=== PATIENT | male | born 1940 | race African-American/Black ===

== ENCOUNTER 2017-04-25 11:26 | Observation (INO) | payer MEDICARE ==
[~2017-04-25] VITALS: Ht 172.7 cm; Wt 70.0 kg
[2017-04-25] VITALS (8 sets, daily range): BP systolic 121–180; BP diastolic 57–79; PULSE 72–91; RESP 15–20; TEMP 97.7–98.2; O2SAT 98–99
[~2017-04-25 11:26] MED LIST: ALLO100T PO; ASPI325T PO; CLOP75 PO; COZA100T PO; CYCL-36 PO; DORZO2%O EACH EYE; HYDR-2768 PO; IBUP-232 PO; ISOS60TA PO; LIPI80TA16 PO; NIFE10CA PO; NITR0.4S SL; RANO500 PO; VITA400D PO; XALA0.00 EACH EYE
[2017-04-25] MEDS ORDERED: LOSA100T PO ×2 (11:49→11:55)
[2017-04-25] MEDS ORDERED: ASPI-516 CHEW (11:49)
[2017-04-25] MEDS ORDERED: ASPI81TA23 PO (11:49)
--- NOTE | 2017-04-25 11:53 | PD ---
HPI Chief Complaint: Pain: Acute or Chronic Time Seen by Provider: 11:35 Travel History International Travel<30 days: No Contact w/Intl Traveler<30days: No Traveled to known affect area: No History of Present Illness HPI 76-year-old male presents to the emergency department for evaluation of right- sided neck and right shoulder pain that has been ongoing for 1 week. He states it is worse with movement. He states he saw his primary care physician who gave him prescription for tramadol and Flexeril. He is out of his tramadol. Patient also states he has lost 10 pounds in the past month. He states his primary care physician was quite happy with this, but he is not sure why he lost weight and would like some workup to be done for this. Patient reports some chills. He denies any chest pain or shortness of breath at this time. No abdominal pain. Nausea, vomiting, diarrhea. Severity is mild. Exacerbating factor is movement. Alleviating factor is rest. PFSH Past Medical History Arthritis: Yes (GOUT) Asthma: No Atrial Fibrillation: Yes Blood Disorders: No Heart Rhythm Problems: Yes Cancer: No Cardiac Catheterization: Yes Cardiovascular Problems: Yes (heart attack, pvd) High Cholesterol: Yes Chemotherapy: No Chest Pain: Yes (cardiac cath 08/2013) Congestive Heart Failure: Yes COPD: No Coronary Artery Disease: Yes Diabetes: Yes (TYPE 2) Patient Takes Glucophage: Yes Diminished Hearing: No Endocrine: No Gastrointestinal Disorders: No GERD: Yes Glaucoma: Yes Genitourinary: Yes Hepatitis: No Hiatal Hernia: No Hypertension: Yes Immune Disorder: No Kidney Stones: No Musculoskeletal: Yes (arthritis) Neurologic: No Psychiatric: No Reproductive: No Respiratory: Yes Integumentary: No Immunizations Current: No Myocardial Infarction: Yes Radiation Therapy: No Renal Failure: Yes Sleep Apnea: No Thyroid Disease: No Ulcer: No Tetanus Vaccination: > 5 Years Influenza Vaccination: Yes Past Surgical History Abdominal Surgery: No AICD: No Arteriovenous Shunt: No Body Medical Devices: cardiac stents Cardiac Surgery: Yes (CABG IN OCTOBER 2004) Coronary Artery Bypass Graft: Yes (5 VESSEL IN 2004) Ear Surgery: No Endocrine Surgery: No Eye Surgery: Yes (RIGHT EYE LASER GLAUCOMA) Genitourinary Surgery: No Gynecologic Surgery: No Insulin Pump: No Joint Replacement: No Oral Surgery: No Pacemaker: No Thoracic Surgery: No Other Surgery: Yes (MANAGER FRENCH X 2 TOO LEFT LEG IN FEB 2006) Family History Family Hypercholesterolemia: Yes Social History Alcohol Use: No Tobacco Use: No (FORMER) Substance Use: No Allergies-Medications (Allergen,Severity, Reaction): Coded Allergies: oyster extract (Unverified Allergy, Severe, 04/25/17) Reported Meds & Prescriptions Reported Meds & Active Scripts Active Reported Nitrostat SL (Nitroglycerin) 0.4 Mg Subl 0.4 Mg SL DIRECTED PRN 1 tablet under the tongue as needed for chest pain. Repeat every 5 minutes for a total of 3 DOSES or call 911 if NO relief. Virtussin A-C Liq (Guaifenesin-Codeine Liq) 100-10 Mg/5 Ml Soln 5 Ml PO Q4H PRN Tramadol (Tramadol HCl) 50 Mg Tab 50 Mg PO Q8H PRN Nifedipine ER 24 HR (Nifedipine) 60 Mg Tab 60 Mg PO DAILY Plavix (Clopidogrel Bisulfate) 75 Mg Tab 75 Mg PO DAILY Isosorbide Mononitrate ER (Isosorbide Mononitrate) 120 Mg Rei 120 Mg PO DAILY Flexeril (Cyclobenzaprine HCl) 10 Mg Tab 10 Mg PO TID Allopurinol 100 Mg Tab 100 Mg PO DAILY Atorvastatin (Atorvastatin Calcium) 80 Mg Tab 80 Mg PO HS Vitamin D-3 (Cholecalciferol) 1,000 Unit Cap Hydrochlorothiazide 25 Mg Tab 25 Mg PO DAILY Aspirin EC (Aspirin) 81 Mg Tabdr 81 Mg PO DAILY Losartan (Losartan Potassium) 100 Mg Tab 100 Mg PO DAILY Review of Systems Except as stated in HPI: all other systems reviewed are Neg Physical Exam Narrative GENERAL: Well-nourished, well-developed male patient, afebrile. SKIN: Focused skin assessment warm/dry. HEAD: Normocephalic. Atraumatic. EYES: No scleral icterus. No injection or drainage. NECK: Supple, trachea midline. No JVD or lymphadenopathy. CARDIOVASCULAR: Regular rate and rhythm without murmurs, gallops, or rubs. Right radial pulses 2+ RESPIRATORY: Breath sounds equal bilaterally. No accessory muscle use. Lungs sounds are clear to auscultation. GASTROINTESTINAL: Abdomen soft, non-tender, nondistended. MUSCULOSKELETAL: No cyanosis, or edema. Patient is tenderness of her right trapezius muscle and right shoulder. This pain is reproduced with lateral rotation of the neck as well as flexion of the shoulder. BACK: Nontender without obvious deformity. No CVA tenderness. Data Data Last Documented VS Vital Signs Date Time Temp Pulse Resp B/P (MAP) Pulse Ox O2 Delivery O2 Flow Rate FiO2 04/25/17 12:00 20 99 Room Air 04/25/17 11:45 77 04/25/17 11:41 97.7 Orders Orders Complete Blood Count With Diff (04/25/17 11:48) Comprehensive Metabolic Panel (04/25/17 11:48) Magnesium (Mg) (04/25/17 11:48) Urinalysis - C+S If Indicated (04/25/17 11:48) Ecg Monitoring (04/25/17 11:48) Iv Access Insert/Monitor (04/25/17 11:48) Oximetry (04/25/17 11:48) Sodium Chloride 0.9% Flush (Ns Flush) (04/25/17 12:00) Thyroid Stimulating Hormone (04/25/17 11:48) Tramadol (Ultram) (04/25/17 12:00) Shoulder, Complete (>2vws) (04/25/17 ) Sodium Chlor 0.9% 1000 Ml Inj (Ns 1000 M (04/25/17 13:15) Admit Order (Ed Use Only) (04/25/17 13:59) Labs Laboratory Tests Test 04/25/17 11:57 04/25/17 12:20 White Blood Count 7.8 TH/MM3 Red Blood Count 2.91 MIL/MM3 Hemoglobin 8.9 GM/DL Hematocrit 26.8 % Mean Corpuscular Volume 92.0 FL Mean Corpuscular Hemoglobin 30.7 PG Mean Corpuscular Hemoglobin Concent 33.4 % Red Cell Distribution Width 14.0 % Platelet Count 225 TH/MM3 Mean Platelet Volume 8.0 FL Neutrophils (%) (Auto) 56.7 % Lymphocytes (%) (Auto) 27.3 % Monocytes (%) (Auto) 14.7 % Eosinophils (%) (Auto) 1.0 % Basophils (%) (Auto) 0.3 % Neutrophils # (Auto) 4.4 TH/MM3 Lymphocytes # (Auto) 2.1 TH/MM3 Monocytes # (Auto) 1.1 TH/MM3 Eosinophils # (Auto) 0.1 TH/MM3 Basophils # (Auto) 0.0 TH/MM3 CBC Comment DIFF FINAL Differential Comment Blood Urea Nitrogen 65 MG/DL Creatinine 4.66 MG/DL Random Glucose 113 MG/DL Total Protein 7.1 GM/DL Albumin 3.1 GM/DL Calcium Level 8.7 MG/DL Magnesium Level 1.8 MG/DL Alkaline Phosphatase 91 U/L Aspartate Amino Transf (AST/SGOT) 9 U/L Alanine Aminotransferase (ALT/SGPT) 14 U/L Total Bilirubin 0.5 MG/DL Sodium Level 135 MEQ/L Potassium Level 4.0 MEQ/L Chloride Level 103 MEQ/L Carbon Dioxide Level 25.0 MEQ/L Anion Gap 7 MEQ/L Estimat Glomerular Filtration Rate 15 ML/MIN Thyroid Stimulating Hormone 3rd Gen 0.092 uIU/ML Urine Color YELLOW Urine Turbidity CLEAR Urine pH 5.5 Urine Specific [place] 1.012 Urine Protein 100 mg/dL Urine Glucose (UA) NEG mg/dL Urine Ketones NEG mg/dL Urine Occult Blood NEG Urine Nitrite NEG Urine Bilirubin NEG Urine Urobilinogen LESS THAN 2.0 MG/DL Urine Leukocyte Esterase NEG Urine RBC LESS THAN 1 /hpf Urine WBC LESS THAN 1 /hpf Urine Squamous Epithelial Cells <1 /hpf Microscopic Urinalysis Comment CULT NOT INDICATED MDM Medical Decision Making Medical Screen Exam Complete: Yes Emergency Medical Condition: Yes Medical Record Reviewed: Yes Interpretation(s) Last Impressions Shoulder X-Ray 04/25/17 0000 Signed Impressions: Service Date/Time: , April 25, 2017 12:04 - CONCLUSION: 1. No evidence of fracture or dislocation. 2. As severity right a.c. joint arthropathy. Familia Camacho MD Differential Diagnosis Muscle strain versus muscle spasm versus electrolyte abnormality Narrative Course 76-year-old male presents to the emergency department for evaluation of right shoulder neck pain is been ongoing for 1 week. His primary care physician is Jean-Pierre is muscle spasms. He is out of his current tramadol. The pain is easily reproducible with movement and palpation. Patient also states he lost 10 pounds in one month. He states his primary care physician is happy with this, but he is worried. CBC, CMP, magnesium, TSH, UA are ordered and pending. X- ray of the right shoulder is ordered and pending. Patient is given tramadol 50 by mouth. CBC shows anemia with hemoglobin 8.9, hematocrit 26.8. CMP shows elevated BUN of 65, creatinine 4.66. Magnesium is 1.8. TSH is 0.092. UA is negative for acute infection. X-ray of the right shoulder shows no acute fracture or dislocation. I performed a rectal exam which she, ED finance associate at bedside. Stool is brown, no masses, Hemoccult negative. Patient is given normal saline 1 L IV bolus. [facility] is paged for observation admission for dehydration, acute kidney injury. Dr. Narvaez accepted admission. Diagnosis Primary Impression: Acute kidney injury Additional Impression: Generalized weakness Admitting Information Admitting Physician Requests: Observation Lary Goetz Apr 25, 2017 11:53
[2017-04-25] MEDS ORDERED: GUAI1SOL7 PO (11:55)
[2017-04-25] MEDS ORDERED: ALLO100T PO (11:55)
[2017-04-25] MEDS ORDERED: NIFE60TA58 PO (11:55)
[2017-04-25] MEDS ORDERED: D31000CA3 (11:55)
[2017-04-25] MEDS ORDERED: CYCL10TA PO (11:55)
[2017-04-25] MEDS ORDERED: ATOR80TA45 PO (11:55)
[2017-04-25] MEDS ORDERED: HYDR25TA5 PO (11:55)
[2017-04-25] MEDS ORDERED: NITR0.4S SL (11:55)
[2017-04-25] MEDS ORDERED: TRAM50TA PO (11:55)
[2017-04-25] MEDS ORDERED: ISOS120T PO (11:55)
[2017-04-25] MEDS ORDERED: PLAV75TA29 PO (11:55)
[2017-04-25] MEDS ORDERED: traMADol HCL 50 MG TAB PO ONE (12:00)
[2017-04-25] MEDS ORDERED: SODIUM CHLORIDE 0.9% FLUSH 10 ML FLUSH IVF PRN (12:00)
--- NOTE | 2017-04-25 12:25 | RADRPT ---
EXAM DATE/TIME: 04/25/2017 12:04 [facility] COMPARISON: No previous studies available for comparison. INDICATIONS : Right shoulder pain for 1 week. No known injury. MEDICAL HISTORY : Hypertension. Myocardial infarction. Diabetes mellitus type II. Afib. Coronary artery disease. SURGICAL HISTORY : CABG. Cardiac cath. ENCOUNTER: Initial ACUITY: 1 week PAIN SCORE: 6/10 LOCATION: Right shoulder. FINDINGS: Multiple view examination of the right shoulder demonstrates no evidence of fracture or dislocation. The glenohumeral and acromioclavicular joints are maintained, with moderate severity degenerative ch anges in the a.c. joint. There is normal range of motion between internal and external rotation. Th e visualized frontoparietal intact. Bony mineralization is normal. CONCLUSION: 1. No evidence of fracture or dislocation. 2. As severity right a.c. joint arthropathy. Familia Camacho MD on April 25, 2017 at 12:22 Board Certified Radiologist. This report was verified electronically.
--- NOTE | 2017-04-25 12:34 | PD ---
Physical Exam Date Seen by Provider: Apr 25, 2017 Time Seen by Provider: 11:45 Narrative This patient presented with a one-week history of right neck and shoulder pain. Data Data Last Documented VS Vital Signs Date Time Temp Pulse Resp B/P (MAP) Pulse Ox O2 Delivery O2 Flow Rate FiO2 04/25/17 12:00 20 99 Room Air 04/25/17 11:45 77 04/25/17 11:41 97.7 Orders Orders Complete Blood Count With Diff (04/25/17 11:48) Comprehensive Metabolic Panel (04/25/17 11:48) Magnesium (Mg) (04/25/17 11:48) Urinalysis - C+S If Indicated (04/25/17 11:48) Ecg Monitoring (04/25/17 11:48) Iv Access Insert/Monitor (04/25/17 11:48) Oximetry (04/25/17 11:48) Sodium Chloride 0.9% Flush (Ns Flush) (04/25/17 12:00) Thyroid Stimulating Hormone (04/25/17 11:48) Tramadol (Ultram) (04/25/17 12:00) Shoulder, Complete (>2vws) (04/25/17 ) Labs Laboratory Tests Test 04/25/17 11:57 04/25/17 12:20 MDM Supervised Visit with TERRY: Yes Narrative Course I, Dr. Littlejohn, have reviewed the advance practice practitioner's documentation and am in agreement, met with the patient face to face, made the diagnosis, and the medical decision making was done by me. *My assessment and Findings: This patient presents with a one-week history of right neck and shoulder pain. He looks well. Please see Lary Goetz NP's note for laboratory and radiology results, final diagnosis and disposition Nerissa Littlejohn MD Apr 25, 2017 12:34
[2017-04-25 12:37] LABS: AUTOMATED NEUTROPHIL # 4.4 TH/MM3 (1.8-7.7); BASOPHIL % 0.3 % (0.0-2.0); EOSINOPHIL # 0.1 TH/MM3 (0-0.4); HEMATOCRIT 26.8 % (39.0-51.0); HEMO FLAGS DIFF FINAL; LYMPH % 27.3 % (9.0-44.0); LYMPHOCYTE # 2.1 TH/MM3 (1.0-4.8); MEAN CORPUSCULAR HEMOGLOBIN 30.7 PG (27.0-34.0); MEAN CORPUSCULAR HGB CONC 33.4 % (32.0-36.0); MONO % 14.7 % (0.0-8.0); NEUT % 56.7 % (16.0-70.0); PLATELET COUNT 225 TH/MM3 (150-450); RED BLOOD COUNT 2.91 MIL/MM3 (4.50-5.90); WHITE BLOOD COUNT 7.8 TH/MM3 (4.0-11.0)
[2017-04-25 12:40] LABS: BLOOD, URINE NEG (NEG); GLUCOSE,URINE NEG (NEG); KETONE, URINE NEG (NEG); NITRITE,URINE NEG (NEG); PH, URINE 5.5 (5.0-8.5); SQUAMOUS EPITHELIAL CELL URINE <1 /hpf (0-5); URINE COLOR YELLOW (YELLW/STRAW)
[2017-04-25 12:44] LABS: COMMENT (UR) CULT NOT INDICATED; CULTURE IF INDICATED CULT NOT INDICATED
[2017-04-25 12:52] LABS: ANION GAP 7 MEQ/L (5-15); AST (GOT) 9 U/L (15-37); BLOOD UREA NITROGEN 65 MG/DL (7-18); CHLORIDE 103 MEQ/L (98-107); GLOMERULAR FILTRATION RATE 15 ML/MIN (>89); MAGNESIUM 1.8 MG/DL (1.5-2.5); SODIUM (NA) 135 MEQ/L (136-145)
[2017-04-25 12:53] LABS: ALT (GPT) 14 U/L (12-78)
[2017-04-25 13:02] LABS: ALKALINE PHOSPHATASE 91 U/L (45-117); TOTAL BILIRUBIN ADULT 0.5 MG/DL (0.2-1.0)
[2017-04-25] MEDS ORDERED: SODIUM CHLOR 0.9% 1000 ML INJ 1,000 ML IV ONE (13:15)
[2017-04-25] MEDS ORDERED: ONDANSETRON HCL 4 MG/2 ML VIAL IVP PRN (14:15)
[2017-04-25] MEDS ORDERED: MAGNESIUM HYDROXIDE SUSP 30 ML CUP PO PRN (14:15)
[2017-04-25] MEDS ORDERED: NALOXONE HCL 0.4 MG/ML AMP IV PUSH PRN (14:15)
[2017-04-25] MEDS ORDERED: SODIUM CHLORIDE 0.9% FLUSH 10 ML FLUSH IV FLUSH PRN (14:15)
[2017-04-25] MEDS ORDERED: ACETAMINOPHEN 325 MG TAB PO PRN (14:15)
--- NOTE | 2017-04-25 14:21 | HHI.HP ---
HPI Service [facility] Hospitalists Primary Care Physician Duke Rankin MD, PhD Admission Diagnosis ILA, generalized weakness Chief Complaint: pain posterior neck and shoulder x 5 days Travel History International Travel<30 Days: No Contact w/Intl Traveler <30 Da: No Traveled to Known Affected Are: No History of Present Illness This is a 76 year old male patient with a past medical history which includes: CAD, [place] s/p cardiac stents and CAGG x 5, PAD, HTN, CKD stage IV - V followed by Dr. Landrum has left arm fistula placed 2015. Patient presents to the ER with concern regarding pain in the posterior neck with radiation to right posterior shoulder. Pain is described as a muscle spasm. Patient worse with turning the head. Supraspinatus and paraspinous muscles feel tight/ bulging on palpation. Patient report the pain started about five nights ago and awoke him from sleep. Patient does not recall any unusual activity or injury to the area. Patient was seen by his PCP Dr. Rankin Saturday for this same pain and was treated with Flexeril 10 mg TID and Tramadol 50 mg as needed for pain. The Flexeril and tramadol initially helped to relieve the pain, but the pain returned last night so patient proceeded to the ER. Patient endorses nonproductive cough earlier in the week that seems to have resolved. Patient denies chest pain, shortness of breath, N/V/D/C, fevers or chills. Review of Systems Constitutional: DENIES: Fatigue, Fever, Chills Eyes: DENIES: Blurred vision, Diplopia, Vision loss Respiratory: COMPLAINS OF: Cough, DENIES: Sputum production, Shortness of breath Cardiovascular: DENIES: Chest pain, Palpitations, Lower Extremity Edema Gastrointestinal: DENIES: Abdominal pain, Constipation, Diarrhea Neurologic: DENIES: Abnormal gait, Headache, Localized weakness, Speech Problems Psychiatric: DENIES: Anxiety, Confusion, Depression Past Family Social History Past Medical History CAD with cardiac stents and CABG x 5, PAD, HTN, CKD stage IV - V not yet on HD Past Surgical History CABG x5 2007 cardiac stents LUE fistula stage IV placed 2015 colonoscopy Reported Medications Nitrostat SL (Nitroglycerin) 0.4 Mg Subl 0.4 Mg SL DIRECTED PRN 1 tablet under the tongue as needed for chest pain. Repeat every 5 minutes for a total of 3 DOSES or call 911 if NO relief. Virtussin A-C Liq (Guaifenesin-Codeine Liq) 100-10 Mg/5 Ml Soln 5 Ml PO Q4H PRN Tramadol (Tramadol HCl) 50 Mg Tab 50 Mg PO Q8H PRN Nifedipine ER 24 HR (Nifedipine) 60 Mg Tab 60 Mg PO DAILY Plavix (Clopidogrel Bisulfate) 75 Mg Tab 75 Mg PO DAILY Isosorbide Mononitrate ER (Isosorbide Mononitrate) 120 Mg Rei 120 Mg PO DAILY Flexeril (Cyclobenzaprine HCl) 10 Mg Tab 10 Mg PO TID Allopurinol 100 Mg Tab 100 Mg PO DAILY Atorvastatin (Atorvastatin Calcium) 80 Mg Tab 80 Mg PO HS Vitamin D-3 (Cholecalciferol) 1,000 Unit Cap Hydrochlorothiazide 25 Mg Tab 25 Mg PO DAILY Aspirin EC (Aspirin) 81 Mg Tabdr 81 Mg PO DAILY Losartan (Losartan Potassium) 100 Mg Tab 100 Mg PO DAILY Allergies: Coded Allergies: oyster extract (Unverified Allergy, Severe, 04/25/17) Active Ordered Medications Current Medications Medications (Trade) Dose Ordered Sig/[place] Route Start Time Stop Time Status Last Admin (NS Flush) 2 ml UNSCH PRN IV FLUSH 04/25/17 14:15 (NS Flush) 2 ml BID IV FLUSH 04/25/17 21:00 (Tylenol) 650 mg Q4H PRN PO 04/25/17 14:15 (Zofran Inj) 4 mg Q6H PRN IVP 04/25/17 14:15 (Narcan Inj) 0.4 mg UNSCH PRN IV PUSH 04/25/17 14:15 (Jihan-Colace) 1 tab BID PO 04/25/17 21:00 (Milk Of Magnesia Liq) 30 ml Q12H PRN PO 04/25/17 14:15 (Zyloprim) 100 mg DAILY PO 04/26/17 09:00 UNV (Ecotrin Ec) 81 mg DAILY PO 04/26/17 09:00 UNV (Lipitor) 80 mg HS PO 04/25/17 21:00 UNV (Plavix) 75 mg DAILY PO 04/26/17 09:00 UNV (Flexeril) 10 mg TID PO 04/25/17 18:00 UNV (Robitussin Ac 200-20 Mg/10 ml Liq) 5 ml Q4H PRN PO 04/25/17 15:30 UNV (Imdur) 120 mg DAILY PO 04/26/17 09:00 UNV (Procardia Xl) 60 mg DAILY PO 04/26/17 09:00 UNV (Ultram) 50 mg Q8H PRN PO 04/25/17 15:30 UNV Family History Reviewed and noncontributory Social History Denies ETOH use Quit smoking 15 years ago, prior to that has a 25 pack year history Physical Exam Vital Signs Vital Signs Date Time Temp Pulse Resp B/P (MAP) Pulse Ox O2 Delivery O2 Flow Rate FiO2 04/25/17 12:00 20 99 Room Air 04/25/17 11:45 77 20 04/25/17 11:41 97.7 79 18 121/57 (78) 04/25/17 11:28 97.8 81 18 142/65 (90) 99 Room Air Physical Exam GENERAL: This is a well-nourished, well-developed patient, in no apparent distress. SKIN: No rashes, ecchymoses or lesions. Cool and dry. HEAD: Atraumatic. Normocephalic. No temporal or scalp tenderness. EYES: Extraocular motions intact. No scleral icterus. No injection or drainage. ENT: Nose without bleeding, purulent drainage or septal hematoma. Throat without erythema, tonsillar hypertrophy or exudate. Uvula midline. Airway patent. NECK: Trachea midline. No JVD or lymphadenopathy. Supple, nontender, no meningeal signs. CARDIOVASCULAR: Regular rate and rhythm RESPIRATORY: Clear to auscultation. Breath sounds equal bilaterally. GASTROINTESTINAL: Abdomen soft, non-tender, nondistended. No hepato-splenomegaly , or palpable masses. No guarding. MUSCULOSKELETAL: Extremities without clubbing, cyanosis, or edema. No joint tenderness, effusion, or edema noted. No calf tenderness. Negative Homans sign bilaterally. Supraspinatus and paraspinous muscles feel tight/bulging on palpation NEUROLOGICAL: Awake and alert. No focal deficits. Motor and sensory grossly within normal limits. Five out of 5 muscle strength in all muscle groups. Normal speech. Laboratory Laboratory Tests Test 04/25/17 11:57 04/25/17 12:20 White Blood Count 7.8 Red Blood Count 2.91 Hemoglobin 8.9 Hematocrit 26.8 Mean Corpuscular Volume 92.0 Mean Corpuscular Hemoglobin 30.7 Mean Corpuscular Hemoglobin Concent 33.4 Red Cell Distribution Width 14.0 Platelet Count 225 Mean Platelet Volume 8.0 Neutrophils (%) (Auto) 56.7 Lymphocytes (%) (Auto) 27.3 Monocytes (%) (Auto) 14.7 Eosinophils (%) (Auto) 1.0 Basophils (%) (Auto) 0.3 Neutrophils # (Auto) 4.4 Lymphocytes # (Auto) 2.1 Monocytes # (Auto) 1.1 Eosinophils # (Auto) 0.1 Basophils # (Auto) 0.0 CBC Comment DIFF FINAL Differential Comment Blood Urea Nitrogen 65 Creatinine 4.66 Random Glucose 113 Total Protein 7.1 Albumin 3.1 Calcium Level 8.7 Magnesium Level 1.8 Alkaline Phosphatase 91 Aspartate Amino Transf (AST/SGOT) 9 Alanine Aminotransferase (ALT/SGPT) 14 Total Bilirubin 0.5 Sodium Level 135 Potassium Level 4.0 Chloride Level 103 Carbon Dioxide Level 25.0 Anion Gap 7 Estimat Glomerular Filtration Rate 15 Thyroid Stimulating Hormone 3rd Gen 0.092 Urine Color YELLOW Urine Turbidity CLEAR Urine pH 5.5 Urine Specific [place] 1.012 Urine Protein 100 Urine Glucose (UA) NEG Urine Ketones NEG Urine Occult Blood NEG Urine Nitrite NEG Urine Bilirubin NEG Urine Urobilinogen LESS THAN 2.0 Urine Leukocyte Esterase NEG Urine RBC LESS THAN 1 Urine WBC LESS THAN 1 Urine Squamous Epithelial Cells <1 Microscopic Urinalysis Comment CULT NOT INDICATED Result Diagram: 04/25/17 1157 04/25/17 1157 Imaging Last Impressions Shoulder X-Ray 04/25/17 0000 Signed Impressions: Service Date/Time: April 12:04 - CONCLUSION: 1. No evidence of fracture or dislocation. 2. As severity right a.c. joint arthropathy. MD Narda Diaz VTE Risk Assessment Caprini VTE Risk Assessment: Mod/High Risk (score >= 2) Caprini Risk Assessment Model Point Value = 1 Point Value = 2 Point Value = 3 Point Value = 5 Age 41-60 Minor surgery BMI > 25 kg/m2 Swollen legs Varicose veins or History of unexplained or recurrent spontaneous Oral contraceptives or hormone replacement Sepsis (< 1 month) Serious lung disease, including pneumonia (< 1 month) Abnormal pulmonary function Acute myocardial infarction Congestive heart failure (< 1 month) History of inflammatory bowel disease Medical patient at bed rest Age 61-74 Arthroscopic surgery Major open surgery (> 45 min) Laparoscopic surgery (> 45 min) Malignancy Confined to bed (> 72 hours) Immobilizing plaster cast Central venous access Age >= 75 History of VTE Family history of VTE Factor V Leiden Prothrombin [id number] Lupus anticoagulant Anticardiolipin antibodies Elevated serum homocysteine Heparin-induced thrombocytopenia Other congenital or acquired thrombophilia Stroke (< 1 month) Elective arthroplasty Hip, pelvis, or leg fracture Acute spinal cord injury (< 1 month) Prophylaxis Regimen Total Risk Factor Score Risk Level Prophylaxis Regimen 0-1 Low Early ambulation 2 Moderate Order ONE of the following: *Sequential Compression Device (SCD) *Heparin 5000 units SQ BID 3-4 Higher Order ONE of the following medications: *Heparin 5000 units SQ TID *Enoxaparin/Lovenox 40 mg SQ daily (WT < 150 kg, CrCl > 30 mL/min) *Enoxaparin/Lovenox 30 mg SQ daily (WT < 150 kg, CrCl > 10-29 mL/min) *Enoxaparin/Lovenox 30 mg SQ BID (WT < 150 kg, CrCl > 30 mL/min) AND/OR *Sequential Compression Device (SCD) 5 or more Highest Order ONE of the following medications: *Heparin 5000 units SQ TID (Preferred with Epidurals) *Enoxaparin/Lovenox 40 mg SQ daily (WT < 150 kg, CrCl > 30 mL/min) *Enoxaparin/Lovenox 30 mg SQ daily (WT < 150 kg, CrCl > 10-29 mL/min) *Enoxaparin/Lovenox 30 mg SQ BID (WT < 150 kg, CrCl > 30 mL/min) AND *Sequential Compression Device (SCD) Assessment and Plan Problem List: (1) Muscle spasms of neck ICD Codes: M62.838 - Other muscle spasm Plan: This is a 76 year old male patient with a past medical history which includes: CAD, [place] s/p cardiac stents and CAGG x 5, PAD, HTN, CKD stage IV - V followed by Dr. Landrum has left arm fistula placed 2016. Patient presents to the ER with concern regarding pain in the posterior neck with radiation to right posterior shoulder. Pain is described as a muscle spasm. Patient worse with turning the head. Supraspinatus and paraspinous muscles feel tight/bulging on palpation. Patient report the pain started about five nights ago and awoke him from sleep. Patient does not recall any unusual activity or injury to the area. Patient was seen by his PCP Dr. Rankin Saturday for this same pain and was treated with Flexeril 10 mg TID and Tramadol 50 mg as needed for pain. The Flexeril and tramadol initially helped to relieve the pain, but the pain returned last night so patient proceeded to the ER. Patient endorses nonproductive cough earlier in the week that seems to have resolved. Muscle spasm of the neck Continue with Flexeril 10 mg TID Tramadol 50 mg PO as needed Solu Medrol 125 mg x 1 now then 60 mg Q6H Right shoulder X ray reviewed and reviewed No evidence of fracture or dislocation. right AC joint arthropathy CKD patient has CKD stage IV-V follows with David Landrum baseline GFR 15-17 Patient has also LUE AV fistula that was placed 2015, but is not yet on HD gentle IV hydration recheck BMP in AM Cough CXR ordered and pending CAD continue home medications Patient denies chest pain DVT prophylaxis with SCDs (2) CKD (chronic kidney disease) ICD Codes: N18.9 - CKD (chronic kidney disease) Status: Acute (3) Cough ICD Codes: R05 - Cough Status: Acute Malu Maldonado Apr 25, 2017 14:21
[2017-04-25] MEDS ORDERED: methylPREDNISolone SOD SUCC 125 MG/2 ML VIAL IV PUSH ONE (15:30)
[2017-04-25] MEDS ORDERED: guaiFENesin/CODEINE SYRUP 200 MG/20 MG/10 ML CUP PO PRN (15:30)
[2017-04-25] MEDS: CYCLOBENZAPRINE HCL 10 MG TAB PO SCH (18:04)
[2017-04-25] MEDS: DOCUSATE SODIUM 50 MG/SENNA 8.6 MG TAB PO SCH (20:38)
[2017-04-25] MEDS: traMADol HCL 50 MG TAB PO PRN (20:38)
--- NOTE | 2017-04-25 20:38 | RADRPT ---
EXAM DATE/TIME: 04/25/2017 18:01 [facility] COMPARISON: CHEST SINGLE AP, November 02, 2014, 4:50. INDICATIONS : Cough x 4days MEDICAL HISTORY : Hypertension. Myocardial infarction. Diabetes mellitus type II. Afib. SURGICAL HISTORY : CABG. Cardiac cath. ENCOUNTER: Subsequent ACUITY: 2 days PAIN SCORE: 0/10 LOCATION: Bilateral chest FINDINGS: A single view of the chest demonstrates postop CABG. Mild basilar atelectasis. Tortuous aorta. No pne umothorax. CONCLUSION: 1. Mild basilar atelectasis. Postop CABG. Ar Lee MD on April 25, 2017 at 20:35 Board Certified Radiologist. This report was verified electronically.
[2017-04-25] MEDS: methylPREDNISolone SOD SUCC 125 MG/2 ML VIAL IV PUSH SCH (20:39)
[2017-04-25] MEDS: SODIUM CHLORIDE 0.9% FLUSH 10 ML FLUSH IV FLUSH SCH (20:39)
[2017-04-25] MEDS ORDERED: ATORVASTATIN 80 MG TAB PO SCH (21:00)
[2017-04-25] MEDS: NITROGLYCERIN 0.4 MG SL 25 TABS/BTL SL PRN (22:29)
[2017-04-25] MEDS ORDERED: amLODIPine BESYLATE 5 MG TAB PO SCH (22:30)
[2017-04-26] VITALS (10 sets, daily range): BP systolic 140–200; BP diastolic 69–100; PULSE 86–103; RESP 17–20; TEMP 97.5–97.8; O2SAT 97–100
[2017-04-26] MEDS: NITROGLYCERIN 0.4 MG SL 25 TABS/BTL SL PRN ×5 (03:37→15:50)
[2017-04-26] MEDS: methylPREDNISolone SOD SUCC 125 MG/2 ML VIAL IV PUSH SCH (03:48)
[2017-04-26] MEDS: traMADol HCL 50 MG TAB PO PRN (07:17)
[2017-04-26 07:27] LABS: AUTOMATED NEUTROPHIL # 4.7 TH/MM3 (1.8-7.7); BASOPHIL % 0.2 % (0.0-2.0); HEMATOCRIT 30.2 % (39.0-51.0); HEMO FLAGS DIFF FINAL; LYMPH % 12.2 % (9.0-44.0); LYMPHOCYTE # 0.7 TH/MM3 (1.0-4.8); MEAN CELL VOLUME 91.6 FL (80.0-100.0); MEAN CORPUSCULAR HEMOGLOBIN 31.1 PG (27.0-34.0); MONO % 0.8 % (0.0-8.0); NEUT % 86.8 % (16.0-70.0); PLATELET COUNT 214 TH/MM3 (150-450); RED CELL DISTRIBUTION WIDTH 14.1 % (11.6-17.2); WHITE BLOOD COUNT 5.4 TH/MM3 (4.0-11.0)
[2017-04-26 07:50] LABS: BICARBONATE 24.3 MEQ/L (21.0-32.0); POTASSIUM 4.3 MEQ/L (3.5-5.1)
[2017-04-26] MEDS ORDERED: PANTOPRAZOLE SODIUM 40 MG VIAL IV PUSH ONE (08:00)
[2017-04-26] MEDS ORDERED: ALUMINUM/MAGNESIUM/SIMETH 30 ML CUP PO ONE (08:00)
[2017-04-26] MEDS ORDERED: PROT40TA PO ×2 (08:04→10:24)
--- NOTE | 2017-04-26 08:05 | HHI.DCPOC ---
Discharge Care Plan Diagnosis: (1) Muscle spasms of neck Goals to Promote Your Health * To prevent worsening of your condition and complications * To maintain your health at the optimal level Directions to Meet Your Goals Take your medications as prescribed Follow your dietary instruction Follow activity as directed Keep your appointments as scheduled Take your immunizations and boosters as scheduled If your symptoms worsen call your PCP, if no PCP go to Urgent Care Center or Emergency Room Smoking is Dangerous to Your Health. Avoid second hand smoke Call the 24-hour hour crisis hotline for domestic abuse at Mal[place] Maldonado Apr 26, 2017 08:05
--- NOTE | 2017-04-26 08:13 | HHI.PR ---
Subjective Remarks Patient reports neck and posterior shoulder pain resolved now c/o stomach ache which started this AM. Patient describes moderate intensity, "feels like somebody punched me in the stomach." Patient denies burning sensation. Patient also denies N/V. Last BM 2 days ago. Objective Vitals Vital Signs Date Time Temp Pulse Resp B/P (MAP) Pulse Ox O2 Delivery O2 Flow Rate FiO2 04/26/17 03:55 94 140/69 (92) 04/26/17 03:30 103 17 160/100 (120) 97 04/25/17 23:29 98.0 90 18 180/79 (112) 98 04/25/17 19:10 98.2 91 16 177/76 (109) 98 04/25/17 18:05 166/72 (103) 04/25/17 15:21 98.2 72 20 169/72 (104) 99 04/25/17 14:55 04/25/17 14:48 72 15 158/74 (102) 99 Room Air 04/25/17 12:00 20 99 Room Air 04/25/17 11:45 77 20 04/25/17 11:41 97.7 79 18 121/57 (78) 04/25/17 11:28 97.8 81 18 142/65 (90) 99 Room Air Result Diagram: 04/26/17 0708 04/26/17 0708 Other Results Laboratory Tests Test 04/25/17 11:57 04/25/17 12:20 04/26/17 07:08 White Blood Count 7.8 TH/MM3 5.4 TH/MM3 Red Blood Count 2.91 MIL/MM3 3.30 MIL/MM3 Hemoglobin 8.9 GM/DL 10.3 GM/DL Hematocrit 26.8 % 30.2 % Mean Corpuscular Volume 92.0 FL 91.6 FL Mean Corpuscular Hemoglobin 30.7 PG 31.1 PG Mean Corpuscular Hemoglobin Concent 33.4 % 34.0 % Red Cell Distribution Width 14.0 % 14.1 % Platelet Count 225 TH/MM3 214 TH/MM3 Mean Platelet Volume 8.0 FL 8.2 FL Neutrophils (%) (Auto) 56.7 % 86.8 % Lymphocytes (%) (Auto) 27.3 % 12.2 % Monocytes (%) (Auto) 14.7 % 0.8 % Eosinophils (%) (Auto) 1.0 % 0.0 % Basophils (%) (Auto) 0.3 % 0.2 % Neutrophils # (Auto) 4.4 TH/MM3 4.7 TH/MM3 Lymphocytes # (Auto) 2.1 TH/MM3 0.7 TH/MM3 Monocytes # (Auto) 1.1 TH/MM3 0.0 TH/MM3 Eosinophils # (Auto) 0.1 TH/MM3 0.0 TH/MM3 Basophils # (Auto) 0.0 TH/MM3 0.0 TH/MM3 CBC Comment DIFF FINAL DIFF FINAL Differential Comment Blood Urea Nitrogen 65 MG/DL 66 MG/DL Creatinine 4.66 MG/DL 4.15 MG/DL Random Glucose 113 MG/DL 174 MG/DL Total Protein 7.1 GM/DL Albumin 3.1 GM/DL Calcium Level 8.7 MG/DL 8.9 MG/DL Magnesium Level 1.8 MG/DL Alkaline Phosphatase 91 U/L Aspartate Amino Transf (AST/SGOT) 9 U/L Alanine Aminotransferase (ALT/SGPT) 14 U/L Total Bilirubin 0.5 MG/DL Sodium Level 135 MEQ/L 137 MEQ/L Potassium Level 4.0 MEQ/L 4.3 MEQ/L Chloride Level 103 MEQ/L 106 MEQ/L Carbon Dioxide Level 25.0 MEQ/L 24.3 MEQ/L Anion Gap 7 MEQ/L 7 MEQ/L Estimat Glomerular Filtration Rate 15 ML/MIN 17 ML/MIN Total Creatine Kinase 44 U/L Thyroid Stimulating Hormone 3rd Gen 0.092 uIU/ML Urine Color YELLOW Urine Turbidity CLEAR Urine pH 5.5 Urine Specific [place] 1.012 Urine Protein 100 mg/dL Urine Glucose (UA) NEG mg/dL Urine Ketones NEG mg/dL Urine Occult Blood NEG Urine Nitrite NEG Urine Bilirubin NEG Urine Urobilinogen LESS THAN 2.0 MG/DL Urine Leukocyte Esterase NEG Urine RBC LESS THAN 1 /hpf Urine WBC LESS THAN 1 /hpf Urine Squamous Epithelial Cells <1 /hpf Microscopic Urinalysis Comment CULT NOT INDICATED Imaging Last Impressions Shoulder X-Ray 04/25/17 0000 Signed Impressions: Service Date/Time: April 12:04 - CONCLUSION: 1. No evidence of fracture or dislocation. 2. As severity right a.c. joint arthropathy. Familia Camacho MD Objective Remarks GENERAL: This is a well-nourished, well-developed patient, in no acute distress. CARDIOVASCULAR: Regular rate and rhythm RESPIRATORY: Clear to auscultation. Breath sounds equal bilaterally. No wheezes , rales, or rhonchi. GASTROINTESTINAL: Abdomen soft, non-tender, nondistended. Normal active bowel sounds MUSCULOSKELETAL: Extremities without clubbing, cyanosis, or edema. NEURO: Alert & Oriented x4 to person, place, time, situation. Moves all ext x4 A/P Problem List: (1) Muscle spasms of neck ICD Codes: M62.838 - Other muscle spasm Plan: This is a 76 year old male patient with a past medical history which includes: CAD, IN s/p cardiac stents and CAGG x 5, PAD, HTN, CKD stage IV - V followed by Dr. Landrum has left arm fistula placed 2016. Patient presents to the ER with concern regarding pain in the posterior neck with radiation to right posterior shoulder. Pain is described as a muscle spasm. Patient worse with turning the head. Supraspinatus and paraspinous muscles feel tight/bulging on palpation. Patient report the pain started about five nights ago and awoke him from sleep. Patient does not recall any unusual activity or injury to the area. Patient was seen by his PCP Dr. Rankin Saturday for this same pain and was treated with Flexeril 10 mg TID and Tramadol 50 mg as needed for pain. The Flexeril and tramadol initially helped to relieve the pain, but the pain returned last night so patient proceeded to the ER. Patient endorses nonproductive cough earlier in the week that seems to have resolved. Muscle spasm of the neck- resolved Continue with Flexeril 10 mg TID Tramadol 50 mg PO as needed Solu Medrol 125 mg x 1 now then 60 mg Q6H Right shoulder X ray reviewed and reviewed No evidence of fracture or dislocation. right AC joint arthropathy CKD patient has CKD stage IV-V follows with David Landrum baseline GFR 15-17 Patient has also LUE AV fistula that was placed 2016, but is not yet on HD gentle IV hydration recheck BMP with mild improvement BUN 66, creatinine 4.15, GFR 17 recommend follow up with Dr. Landrum outpatient Cough CXR reviewed and reveals mild basilar atelectasis. post-op CABG IS ordered encouraged deep breathing CAD patient denies chest pain continue home medications Patient denies chest pain Stomach pain Maalox Protonix IV x 1 then PO daily Hyperthyroidism Patient free T4 1.77, TSH 0.092 will need follow up with PCP after DC DVT prophylaxis with SCDs Patient reevaluated at 10:00AM stomach pain has resolved patient now c/o lower abdominal pain and constipation KUB ordered and reviewed reveals stool and gas in bowels. Consistent with a mild adynamic ileus versus early partial small bowel obstruction Patient has a soft nondistended abdomen, with normoactive bowel sounds through out continue to monitor 16:02 patient had large BM no longer having abdominal pain Will DC home follow up with PCP Dr. Rankin in 3-5 days and follow up with his outpatient partner integration planner Dr. Landrum Activity and diet as tolerated- no restrictions continue home medications on DC add protonix 40mg daily prednisone taper Flexeril 10 mg TID x 7 days (2) CKD (chronic kidney disease) ICD Codes: N18.9 - CKD (chronic kidney disease) Status: Acute (3) Cough ICD Codes: R05 - Cough Status: Acute Assessment and Plan Patient examined. Assessment and plan formulated with Malu Maldonado PA-C. I agree with the above. neck spasm is resolved. now lower abdomen pains.could be constipation. kub shows alot of stool/gas and possible ileus vs psbo. pt getting magcitrate now....if bm and resolved pain then d/c and f/u with pcp to monitor this situation. if no bm then consider CT a/p. Malu Maldonado Apr 26, 2017 08:13 Pierre Narvaez MD Apr 26, 2017 11:59
[2017-04-26] MEDS ORDERED: SODIUM CHLOR 0.9% 1000 ML INJ 1,000 ML IV SCH (08:15)
[2017-04-26] MEDS: SODIUM CHLORIDE 0.9% FLUSH 10 ML FLUSH IV FLUSH SCH (08:23)
[2017-04-26] MEDS: DOCUSATE SODIUM 50 MG/SENNA 8.6 MG TAB PO SCH (08:24)
[2017-04-26] MEDS: CYCLOBENZAPRINE HCL 10 MG TAB PO SCH ×2 (08:25→12:28)
[2017-04-26] MEDS ORDERED: cloNIDine HCL 0.1 MG TAB PO ONE (08:30)
[2017-04-26] MEDS ORDERED: NIFEdipine 60 MG SUSTAINED RELEASE TAB PO SCH (09:00)
[2017-04-26] MEDS ORDERED: CLOPIDOGREL 75 MG TAB PO SCH (09:00)
[2017-04-26] MEDS ORDERED: ALLOPURINOL 100 MG TAB PO SCH (09:00)
[2017-04-26] MEDS ORDERED: ASPIRIN EC 81 MG TABEC PO SCH (09:00)
[2017-04-26] MEDS ORDERED: ISOSORBIDE MONONITRATE 60 MG TAB PO SCH (09:00)
[2017-04-26] MEDS ORDERED: MAGNESIUM HYDROXIDE SUSP 30 ML CUP PO ONE (10:00)
[2017-04-26] MEDS ORDERED: MAGNESIUM CITRATE SOLN 300 ML BTL PO ONE (10:00)
[2017-04-26] MEDS ORDERED: CYCL10TA PO (10:24)
[2017-04-26] MEDS ORDERED: PRED10 PO (10:24)
--- NOTE | 2017-04-26 10:30 | RADRPT ---
EXAM DATE/TIME: 04/26/2017 09:59 [facility] COMPARISON: No previous studies available for comparison. INDICATIONS : Abdominal pain and constipation. MEDICAL HISTORY : Hypertension. Myocardial infarction. Diabetes mellitus type II. Afib. SURGICAL HISTORY : Umbilical hernia repair. CABG. Cardiac cath. ENCOUNTER: Subsequent ACUITY: 2 days PAIN SCORE: 5/10 LOCATION: abdomen FINDINGS: Multiple air-filled minimally dilated loops of small bowel in the left abdomen. Air and stool seen th roughout the colon. No gross free air or pneumatosis. Multiple calcifications in the pelvis likely re flect phleboliths. Degenerative spondylosis of the lower lumbar spine. CONCLUSION: 1. Findings consistent with mild adynamic ileus versus early partial small bowel obstruction. Cody Mercer MD on April 26, 2017 at 10:27 Board Certified Radiologist. This report was verified electronically.
[2017-04-26] MEDS ORDERED: GLUCAGON 1 MG/ML VIAL OTHER PRN (11:30)
[2017-04-26] MEDS ORDERED: DEXTROSE 50% IN WATER 50 ML VIAL(D50) IV PUSH PRN (11:30)
[2017-04-26] MEDS ORDERED: INSULIN ASPART SUPPLEMENTAL SCALE SQ SCH (12:00)
[2017-04-26] MEDS ORDERED: DIATRIZOATE MEGLUM/DIATRIZOATE SOD 9 ML CUP PO ONE (16:00)
[2017-04-26] MEDS ORDERED: LOSARTAN 50 MG TAB PO SCH (16:00)
[2017-04-27] MEDS ORDERED: PANTOPRAZOLE SOD 40 MG DELAYED RELEASE TAB PO SCH (09:00)
== END 2017-04-26 17:09 | disposition home or self-care (01) ==
LOC: NEPE 11:26 → NEDA 14:00 → NEPFCDU 15:16
PROVIDERS: ADMIT Hospitalist; ATTEND Hospitalist
DX: M62.838 Other muscle spasm (principal); N17.9 Acute kidney failure, unspecified; E86.0 Dehydration; I12.9 Hypertensive chronic kidney disease with stage 1 through stage 4 chronic kidney disease, or unspecified chronic kidney disease; N18.4 Chronic kidney disease, stage 4 (severe); E11.22 Type 2 diabetes mellitus with diabetic chronic kidney disease; D64.9 Anemia, unspecified; I25.10 Atherosclerotic heart disease of native coronary artery without angina pectoris; E05.90 Thyrotoxicosis, unspecified without thyrotoxic crisis or storm; J98.11 Atelectasis; K21.9 Gastro-esophageal reflux disease without esophagitis; R05 Cough; K59.00 Constipation, unspecified; I25.2 Old myocardial infarction; M10.9 Gout, unspecified; Z95.1 Presence of aortocoronary bypass graft; Z95.5 Presence of coronary angioplasty implant and graft; Z87.891 Personal history of nicotine dependence
CPT/HCPCS: 71010; 73030; 74000; 80048; 80053; 81001; 82550; 83735; 84439; 84443; 85025; 94150; 96361; 96372; 96374; 96375; 96376; 97161; 97530; 99285; C9113; G0378; G8987; G8988; J1815; J2930; J7030

== ENCOUNTER 2017-09-07 06:22 | Inpatient (IN) | payer MEDICARE ==
[~2017-09-07] VITALS: Ht 165.1 cm; Wt 67.3 kg
[~2017-09-07 06:22] MED LIST changes: -ASPI325T PO; +ASPI81TA23 PO; +ATOR80TA45 PO; -CLOP75 PO; -COZA100T PO; -CYCL-36 PO; +CYCL10TA PO; +D31000CA3; -DORZO2%O EACH EYE; +GUAI1SOL7 PO; -HYDR-2768 PO; +HYDR25TA5 PO; -IBUP-232 PO; +ISOS120T PO; -ISOS60TA PO; -LIPI80TA16 PO; +LOSA100T PO; -NIFE10CA PO; +NIFE60TA58 PO; +PLAV75TA29 PO; +PRED10 PO; +PROT40TA PO; -RANO500 PO; -VITA400D PO; -XALA0.00 EACH EYE
[2017-09-07 06:29] VITALS: BP 148/69; PULSE 66; RESP 16; TEMP 98.1; O2SAT 99
--- NOTE | 2017-09-07 07:25 | PD ---
HPI Chief Complaint: Altered Mental Status Time Seen by Provider: 06:56 Travel History International Travel<30 days: No Contact w/Intl Traveler<30days: No Traveled to known affect area: No History of Present Illness HPI 77-year-old man presents emergency department brought by family. He reports that they brought him in because he felt like he was "leaving this world" this morning. Is a lot of trouble characterizing exactly how he fell. It sounds like he had some shortness of breath, and felt generally unwell. No chest pain. Denies any recent illness or injury. He has not had shortness of breath leading up to this. 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 He has a left upper extremity fistula. Family reports that over the past several days he has had less appetite and anorexia and difficulty eating. He states that he is able to take boost and Ensure drinks. Also states his urination has been lessened and felt like last night he could not urinate. History of CAD, diabetes. No fevers. No other recent infection symptoms. Patient appears overtly, I will be at mildly, confused, states that the IV in his arm is fake, and that he "knows what is going on here". Also insists that he feels fine at this time. History Past Medical History Narrative Medical CAD, history of CABG Diabetes Chronic kidney disease, left upper extremity fistula, no history of dialysis Hyperlipidemia Hypertension Social History Alcohol Use: No Tobacco Use: No (FORMER) Allergies-Medications (Allergen,Severity, Reaction): Coded Allergies: oyster extract (Unverified Allergy, Severe, 04/25/17) Reported Meds & Prescriptions Reported Meds & Active Scripts Active Flexeril (Cyclobenzaprine HCl) 10 Mg Tab 10 Mg PO TID 7 Days Prednisone 10 Mg Tab 10 Mg PO DIRECTED take 40 mg for three days, then tale 30 mg for three days, then take 20 mg for three days, then take 10 mg for three days, then stop Protonix (Pantoprazole Sodium) 40 Mg Tab 40 Mg PO DAILY Reported Nitrostat SL (Nitroglycerin) 0.4 Mg Subl 0.4 Mg SL DIRECTED PRN 1 tablet under the tongue as needed for chest pain. Repeat every 5 minutes for a total of 3 DOSES or call 911 if NO relief. Virtussin A-C Liq (Guaifenesin-Codeine Liq) 100-10 Mg/5 Ml Soln 5 Ml PO Q4H PRN Nifedipine ER 24 HR (Nifedipine) 60 Mg Tab 60 Mg PO DAILY Plavix (Clopidogrel Bisulfate) 75 Mg Tab 75 Mg PO DAILY Isosorbide Mononitrate ER (Isosorbide Mononitrate) 120 Mg Rei 120 Mg PO DAILY Allopurinol 100 Mg Tab 100 Mg PO DAILY Atorvastatin (Atorvastatin Calcium) 80 Mg Tab 80 Mg PO HS Vitamin D-3 (Cholecalciferol) 1,000 Unit Cap Hydrochlorothiazide 25 Mg Tab 25 Mg PO DAILY Aspirin EC (Aspirin) 81 Mg Tabdr 81 Mg PO DAILY Losartan (Losartan Potassium) 100 Mg Tab 100 Mg PO DAILY Review of Systems ROS Limitations: Clinical Condition Physical Exam Narrative GENERAL: 77-year-old man, looks well, no acute distress. SKIN: Focused skin assessment warm/dry. Little bit of decreased skin turgor. HEAD: Atraumatic. Normocephalic. EYES: Pupils equal and round. No scleral icterus. No injection or drainage. ENT: No nasal bleeding or discharge. Mucous membranes pink and moist. NECK: Trachea midline. Some JVD. CARDIOVASCULAR: Regular rate and rhythm. Soft systolic murmur. RESPIRATORY: No accessory muscle use. Clear to auscultation. Breath sounds equal bilaterally. GASTROINTESTINAL: Abdomen soft, non-tender, nondistended. Hepatic and splenic margins not palpable. MUSCULOSKELETAL: No obvious deformities. No edema. NEUROLOGICAL: Awake and alert. Some confusion. No obvious cranial nerve deficits. Motor grossly within normal limits. Normal speech. Somewhat mistrustful. Data Data Last Documented VS Vital Signs Date Time Temp Pulse Resp B/P (MAP) Pulse Ox O2 Delivery O2 Flow Rate FiO2 09/07/17 07:26 97 Nasal Cannula 2.00 09/07/17 06:29 98.1 66 16 148/69 (95) Orders Orders Complete Blood Count With Diff (09/07/17 07:14) Comprehensive Metabolic Panel (09/07/17 07:14) Iv Access Insert/Monitor (09/07/17 07:14) Electrocardiogram (09/07/17 ) Urinalysis - C+S If Indicated (09/07/17 07:14) Troponin I (09/07/17 07:14) Chest, Pa & Lat (09/07/17 ) Ecg Monitoring (09/07/17 07:14) Oximetry (09/07/17 07:14) Oxygen Administration (09/07/17 07:14) Admit Order (Ed Use Only) (09/07/17 ) Labs Laboratory Tests Test 09/07/17 07:29 White Blood Count 9.3 TH/MM3 Red Blood Count 2.88 MIL/MM3 Hemoglobin 9.1 GM/DL Hematocrit 26.5 % Mean Corpuscular Volume 92.1 FL Mean Corpuscular Hemoglobin 31.7 PG Mean Corpuscular Hemoglobin Concent 34.4 % Red Cell Distribution Width 14.4 % Platelet Count 216 TH/MM3 Mean Platelet Volume 8.4 FL Neutrophils (%) (Auto) 65.0 % Lymphocytes (%) (Auto) 22.3 % Monocytes (%) (Auto) 11.7 % Eosinophils (%) (Auto) 0.7 % Basophils (%) (Auto) 0.3 % Neutrophils # (Auto) 6.1 TH/MM3 Lymphocytes # (Auto) 2.1 TH/MM3 Monocytes # (Auto) 1.1 TH/MM3 Eosinophils # (Auto) 0.1 TH/MM3 Basophils # (Auto) 0.0 TH/MM3 CBC Comment DIFF FINAL Differential Comment Blood Urea Nitrogen 74 MG/DL Creatinine 6.51 MG/DL Random Glucose 106 MG/DL Total Protein 7.8 GM/DL Albumin 3.6 GM/DL Calcium Level 9.4 MG/DL Alkaline Phosphatase 92 U/L Aspartate Amino Transf (AST/SGOT) 17 U/L Alanine Aminotransferase (ALT/SGPT) 18 U/L Total Bilirubin 0.4 MG/DL Sodium Level 133 MEQ/L Potassium Level 5.1 MEQ/L Chloride Level 99 MEQ/L Carbon Dioxide Level 25.6 MEQ/L Anion Gap 8 MEQ/L Estimat Glomerular Filtration Rate 10 ML/MIN Troponin I 1.40 NG/ML [facility] Medical Decision Making Medical Screen Exam Complete: Yes Emergency Medical Condition: Yes Interpretation(s) My review of EKG: Sinus rhythm at a rate of 67, small inferior Q waves, QRS is a little bit wide at 137, no definite evidence of acute ischemia. Differential Diagnosis Renal failure uremia, infection, CHF or PND, other Narrative Course Medical decision making INITIAL: 77 Youifeanyi presents to the emergency department with initial episode last night where apparently was short of breath and felt like he was dying, this seems to have mostly resolved. In the setting of what appears to be some new mild confusion, and some anorexia. This is worrisome for worsening kidney disease. He overall looks generally well. I do not see any evidence of significant volume overload. Will check x-ray, labs, reassess. FINAL: Patient likely worsening renal failure, troponins elevated. Will plan on admission to the hospital. I spoke with Dr. Narvaez, will admit patient. Diagnosis Primary Impression: Elevated troponin Additional Impressions: NSTEMI (non-ST elevated myocardial infarction) CKD (chronic kidney disease) Admitting Information Admitting Physician Requests: Admit Rolly Cowart MD Sep 07, 2017 07:25
[2017-09-07 07:26] VITALS: O2SAT 97
[2017-09-07 07:37] LABS: AUTOMATED NEUTROPHIL # 6.1 TH/MM3 (1.8-7.7); BASOPHIL % 0.3 % (0.0-2.0); EOSINOPHIL # 0.1 TH/MM3 (0-0.4); EOSINOPHIL % 0.7 % (0.0-4.0); HEMATOCRIT 26.5 % (39.0-51.0); HEMOGLOBIN 9.1 GM/DL (13.0-17.0); LYMPH % 22.3 % (9.0-44.0); LYMPHOCYTE # 2.1 TH/MM3 (1.0-4.8); MEAN CELL VOLUME 92.1 FL (80.0-100.0); MEAN CORPUSCULAR HEMOGLOBIN 31.7 PG (27.0-34.0); MEAN CORPUSCULAR HGB CONC 34.4 % (32.0-36.0); MEAN PLATELET VOLUME 8.4 FL (7.0-11.0); MONO % 11.7 % (0.0-8.0); MONOCYTE # 1.1 TH/MM3 (0-0.9); PLATELET COUNT 216 TH/MM3 (150-450); RED BLOOD COUNT 2.88 MIL/MM3 (4.50-5.90); RED CELL DISTRIBUTION WIDTH 14.4 % (11.6-17.2); WHITE BLOOD COUNT 9.3 TH/MM3 (4.0-11.0)
--- NOTE | 2017-09-07 07:38 | RADRPT ---
EXAM DATE/TIME: 09/07/2017 07:24 [facility] COMPARISON: No previous studies available for comparison. INDICATIONS : Shortness of breath. MEDICAL HISTORY : Hypertension. Myocardial infarction. Diabetes mellitus type II. Afib. SURGICAL HISTORY : CABG. Cardiac cath. ENCOUNTER: Initial ACUITY: 1 day PAIN SCORE: Non-responsive. LOCATION: Bilateral chest FINDINGS: PA and lateral views of the chest demonstrate mild cardiomegaly with post surgical changes related to CABG surgery. The pulmonary vasculature is normal in caliber. The lungs are clear. Osseous structure s demonstrate degenerative change. CONCLUSION: No acute disease. Carola Lilly MD on September 07, 2017 at 7:34 Board Certified Radiologist. This report was verified electronically.
[2017-09-07 08:00] LABS: ALBUMIN 3.6 GM/DL (3.4-5.0); AST (GOT) 17 U/L (15-37); BICARBONATE 25.6 MEQ/L (21.0-32.0); BLOOD UREA NITROGEN 74 MG/DL (7-18); CALCIUM 9.4 MG/DL (8.5-10.1); CHLORIDE 99 MEQ/L (98-107); CREATININE 6.51 MG/DL (0.60-1.30); GLOMERULAR FILTRATION RATE 10 ML/MIN (>89); GLUCOSE,RANDOM 106 MG/DL (74-106); SODIUM (NA) 133 MEQ/L (136-145)
[2017-09-07 08:01] LABS: ALT (GPT) 18 U/L (12-78)
[2017-09-07 08:05] LABS: ALKALINE PHOSPHATASE 92 U/L (45-117); TOTAL BILIRUBIN ADULT 0.4 MG/DL (0.2-1.0); TOTAL PROTEIN 7.8 GM/DL (6.4-8.2)
[2017-09-07 11:39] VITALS: BP 166/72; PULSE 66; RESP 18; O2SAT 97
[2017-09-07] MEDS ORDERED: ACETAMINOPHEN 325 MG TAB PO PRN ×2 (12:00→15:00)
[2017-09-07] MEDS ORDERED: PANTOPRAZOLE SOD 40 MG DELAYED RELEASE TAB PO SCH (12:00)
[2017-09-07] MEDS ORDERED: ONDANSETRON HCL 4 MG/2 ML VIAL IV PRN (12:00)
[2017-09-07] MEDS: ISOSORBIDE MONONITRATE 60 MG CR TAB (IMDUR) PO SCH (12:34)
[2017-09-07] MEDS ORDERED: CALC0.25 PO (12:42)
[2017-09-07] MEDS ORDERED: LACT10SO PO (12:42)
[2017-09-07] MEDS ORDERED: ONDA4TAB15 PO (12:42)
[2017-09-07] MEDS ORDERED: LATA0.002 EACH EYE (12:42)
[2017-09-07] MEDS ORDERED: dorzolamide (12:42)
[2017-09-07] MEDS ORDERED: LACTULOSE SYRUP 20 GM/30 ML CUP PO PRN ×2 (14:00→15:00)
--- NOTE | 2017-09-07 14:09 | HHI.HP ---
HPI Service [facility] Hospitalists Primary Care Physician Duke Rankin MD, PhD Admission Diagnosis Acute on chronic renal failure, dysphagia Chief Complaint: Dysphagia, poor oral intake Travel History International Travel<30 Days: No Contact w/Intl Traveler <30 Da: No Traveled to Known Affected Are: No History of Present Illness Mr. Mcmullen is a pleasant 76 y/o AAM with CAD with hx of ID s/p cardiac stents and CABG x 5, PAD, HTN, CKD stage V followed by Dr. Landrum. Pt has left arm fistula placed 2014. Pt presented to the ED at [facility] with various complaints. He states that he woke up this morning and felt like he had increased generalized weakness and had a sensation like he might pass out. Denies any chest pain. He did feel some SOB like it was hard for him to breath. He has not been eating or drinking well more recently because its been hard for him to swallow. It sounds like this dysphagia has been an issue for some time but has worsened in the last 6-7 months according to the pts . He has been eating pudding and some soup but unable to eat anything more solid. If he does eat anything more solid he feels like it makes him gag and gets nauseated. Twice he had episodes of vomiting last week after an episode of gagging on food. He did not cough or choke when the vomiting occurred. He is able to drinking fluids or Ensure slowly. If he tries to drink any fluids fast it makes him nauseated and gag. Pt was seen by GI in December 2016 for complaints of dysphagia but his daughter reports that the pt was felt to be high risk for anesthesia and the pt and family decided to hold off on endoscopy at this time. He was sent for an outpt UGI and Barium swallow in December 2016 which were both negative. Pt was started on Omeprazole at that time. Pt states that he has lost about 30lbs in the last 6 months. Pt also reports that in the last week or so his UOP has decreased. He does feel occasionally dizzy when standing up. Pt was seen by Dr. Landrum yesterday for a regular visit and it was felt that he was ready to start dialysis per the pts but this has not been initiated yet. He also complains about weakness in his upper extremities and occasional spasms in his arms/hands that occur randomly. He states that it is hard for him to pick things up occasionally because of the weakness in his hands. He denies any LE weakness. Review of Systems Constitutional: COMPLAINS OF: Weight loss, DENIES: Fever, Chills Eyes: DENIES: Vision loss Ears, nose, mouth, throat: DENIES: Hearing loss Respiratory: COMPLAINS OF: Shortness of breath, DENIES: Cough Cardiovascular: DENIES: Chest pain, Palpitations, Lower Extremity Edema Gastrointestinal: COMPLAINS OF: Nausea, Difficulty Swallowing, DENIES: Abdominal pain, Constipation Musculoskeletal: COMPLAINS OF: Muscle aches, Neck pain, DENIES: Back pain Integumentary: DENIES: Rash Neurologic: COMPLAINS OF: Localized weakness, DENIES: Headache Psychiatric: DENIES: Confusion Past Family Social History Past Medical History CAD with cardiac stents and CABG x 5 in 2005 NSTEMI in 2013, medically managed Chronic angina Carotid artery stenosis PAD with claudication HTN Hyperlipidemia CKD stage V, not yet on HD Diabetes, diet controlled, Hgb A1C 5.2% in 06/2017 Chronic anemia 2D echo (07/2015) - Moderate LVH - Estimated EF 55-60% - Grade III diastolic dysfunction - Trace mitral regurg - Trace tricuspid valve regurg - Estimated PA pressure 35mmHg Past Surgical History CABG x5 2005 Cardiac stents LUE fistula placed 2014 colonoscopy Reported Medications Flexeril (Cyclobenzaprine HCl) 10 Mg Tab 10 Mg PO TID 7 Days Protonix (Pantoprazole Sodium) 40 Mg Tab 40 Mg PO DAILY Calcitriol 0.25 Mcg Cap 0.25 Mcg PO DAILY Ondansetron (Ondansetron HCl) 4 Mg Tab Mg PO PRN Lactulose Liq (Lactulose) 10 Gm/15 Ml Soln 10 Ml PO Q6H PRN Latanoprost Opth Drops (Latanoprost) 0.005% Drops 1 Drop EACH EYE HS Refrigerate until opened. [dorzolamide] Nitrostat SL (Nitroglycerin) 0.4 Mg Subl 0.4 Mg SL DIRECTED PRN 1 tablet under the tongue as needed for chest pain. Repeat every 5 minutes for a total of 3 DOSES or call 911 if NO relief. Virtussin A-C Liq (Guaifenesin-Codeine Liq) 100-10 Mg/5 Ml Soln 5 Ml PO Q4H PRN Plavix (Clopidogrel Bisulfate) 75 Mg Tab 75 Mg PO DAILY Isosorbide Mononitrate ER (Isosorbide Mononitrate) 120 Mg Rei 120 Mg PO DAILY Allopurinol 100 Mg Tab 100 Mg PO DAILY Atorvastatin (Atorvastatin Calcium) 80 Mg Tab 80 Mg PO HS Vitamin D-3 (Cholecalciferol) 1,000 Unit Cap Hydrochlorothiazide 25 Mg Tab 25 Mg PO DAILY Aspirin EC (Aspirin) 81 Mg Tabdr 81 Mg PO DAILY Losartan (Losartan Potassium) 100 Mg Tab 100 Mg PO DAILY Allergies: Coded Allergies: oyster extract (Unverified Allergy, Severe, 04/25/17) Family History Noncontributory Social History Denies ETOH use Quit smoking 15 years ago, prior to that has a 25 pack year history Physical Exam Vital Signs Vital Signs Date Time Temp Pulse Resp B/P (MAP) Pulse Ox O2 Delivery O2 Flow Rate FiO2 09/07/17 11:39 66 18 166/72 (103) 97 Nasal Cannula 2.00 09/07/17 07:26 97 Nasal Cannula 2.00 09/07/17 07:26 97 Nasal Cannula 2.00 09/07/17 06:29 98.1 66 16 148/69 (95) 99 Physical Exam GENERAL: This is a well-nourished, well-developed patient, in no apparent distress. HEENT: Atraumatic. Normocephalic. No temporal or scalp tenderness. No scleral icterus. Airway patent. NECK: Trachea midline, supple, nontender. CARDIO: Regular. RESP: CTA bilaterally. No wheezes, rales, or rhonchi. ABD: +BS, soft, non-tender, nondistended. EXT: Extremities without clubbing, cyanosis, or edema. NEURO: Awake and alert. Motor and sensory grossly within normal limits. Five out of 5 muscle strength in all muscle groups. Normal speech. Laboratory Laboratory Tests Test 09/07/17 07:29 09/07/17 11:48 White Blood Count 9.3 Red Blood Count 2.88 Hemoglobin 9.1 Hematocrit 26.5 Mean Corpuscular Volume 92.1 Mean Corpuscular Hemoglobin 31.7 Mean Corpuscular Hemoglobin Concent 34.4 Red Cell Distribution Width 14.4 Platelet Count 216 Mean Platelet Volume 8.4 Neutrophils (%) (Auto) 65.0 Lymphocytes (%) (Auto) 22.3 Monocytes (%) (Auto) 11.7 Eosinophils (%) (Auto) 0.7 Basophils (%) (Auto) 0.3 Neutrophils # (Auto) 6.1 Lymphocytes # (Auto) 2.1 Monocytes # (Auto) 1.1 Eosinophils # (Auto) 0.1 Basophils # (Auto) 0.0 CBC Comment DIFF FINAL Differential Comment Blood Urea Nitrogen 74 Creatinine 6.51 Random Glucose 106 Total Protein 7.8 Albumin 3.6 Calcium Level 9.4 Alkaline Phosphatase 92 Aspartate Amino Transf (AST/SGOT) 17 Alanine Aminotransferase (ALT/SGPT) 18 Total Bilirubin 0.4 Sodium Level 133 Potassium Level 5.1 Chloride Level 99 Carbon Dioxide Level 25.6 Anion Gap 8 Estimat Glomerular Filtration Rate 10 Troponin I 1.40 1.41 Result Diagram: 09/07/17 0729 09/07/17 0729 Imaging Last Impressions Chest X-Ray 09/07/17 0000 Signed Impressions: Service Date/Time: Saturday, September 07, 2017 07:24 - CONCLUSION: No acute disease. MD Narda Farley VTE Risk Assessment Narda VTE Risk Assessment: Mod/High Risk (score >= 2) Caprini Risk Assessment Model Point Value = 1 Point Value = 2 Point Value = 3 Point Value = 5 Age 41-60 Minor surgery BMI > 25 kg/m2 Swollen legs Varicose veins or History of unexplained or recurrent spontaneous Oral contraceptives or hormone replacement Sepsis (< 1 month) Serious lung disease, including pneumonia (< 1 month) Abnormal pulmonary function Acute myocardial infarction Congestive heart failure (< 1 month) History of inflammatory bowel disease Medical patient at bed rest Age 61-74 Arthroscopic surgery Major open surgery (> 45 min) Laparoscopic surgery (> 45 min) Malignancy Confined to bed (> 72 hours) Immobilizing plaster cast Central venous access Age >= 75 History of VTE Family history of VTE Factor V Leiden Prothrombin [id number] Lupus anticoagulant Anticardiolipin antibodies Elevated serum homocysteine Heparin-induced thrombocytopenia Other congenital or acquired thrombophilia Stroke (< 1 month) Elective arthroplasty Hip, pelvis, or leg fracture Acute spinal cord injury (< 1 month) Prophylaxis Regimen Total Risk Factor Score Risk Level Prophylaxis Regimen 0-1 Low Early ambulation 2 Moderate Order ONE of the following: *Sequential Compression Device (SCD) *Heparin 5000 units SQ BID 3-4 Higher Order ONE of the following medications: *Heparin 5000 units SQ TID *Enoxaparin/Lovenox 40 mg SQ daily (WT < 150 kg, CrCl > 30 mL/min) *Enoxaparin/Lovenox 30 mg SQ daily (WT < 150 kg, CrCl > 10-29 mL/min) *Enoxaparin/Lovenox 30 mg SQ BID (WT < 150 kg, CrCl > 30 mL/min) AND/OR *Sequential Compression Device (SCD) 5 or more Highest Order ONE of the following medications: *Heparin 5000 units SQ TID (Preferred with Epidurals) *Enoxaparin/Lovenox 40 mg SQ daily (WT < 150 kg, CrCl > 30 mL/min) *Enoxaparin/Lovenox 30 mg SQ daily (WT < 150 kg, CrCl > 10-29 mL/min) *Enoxaparin/Lovenox 30 mg SQ BID (WT < 150 kg, CrCl > 30 mL/min) AND *Sequential Compression Device (SCD) Assessment and Plan Problem List: (1) Acute on chronic kidney failure ICD Codes: N17.9 - Acute kidney failure, unspecified; N18.9 - Chronic kidney disease, unspecified Status: Acute Plan: Acute on chronic renal failure Dehydration Poor oral intake - Pt is a 76 y/o AAM with CAD with hx of ID s/p cardiac stents and CABG x 5, PAD , HTN, CKD stage V followed by Dr. Landrum. Pt has left arm fistula placed 2014. - He presented to the ED at [facility] [place] with various complaints. He states that he woke up this morning and felt like he had increased generalized weakness and had a sensation like he might pass out. He did feel some SOB like it was hard for him to breath. He has not been eating or drinking well more recently because its been hard for him to swallow. Pt also reports that in the last week or so his UOP has decreased. He does feel occasionally dizzy when standing up. - Pts labs at admission noted a worsening of his baseline renal function with Cr 6.51, GFR 10 Pt was seen by Dr[address] Landrum yesterday for a regular visit and it was felt that he was ready to start dialysis per the pts but this has not been initiated yet. - Consult nephrology, Dr. Landrum - Avoid nephrotoxic meds - We will give some gentle IVF as pt seems somewhat dehydrated - Monitor labs closely Dysphagia Weight loss - Pt has been unable to eat solid foods for the last 6-7 months. He is able to drinking fluids or Ensure slowly. - Twice he had episodes of vomiting last week after an episode of gagging on food. - Pt was seen by GI in December 2016 for complaints of dysphagia but his daughter reports that the pt was felt to be high risk for anesthesia and the pt and family decided to hold off on endoscopy at this time. He was sent for an outpt UGI and Barium swallow in December 2016 which were both negative.Pt states that he has lost about 30lbs in the last 6 months. - Start Protonix 40mg IV BID - Consult GI - Barium swallow to further evaluate Bilateral UE weakness/spasms - Check CT Cervical spine, noncontrasted CAD with hx of ID s/p CABG and stenting Hx of chronic angina Elevated troponin HTN - Pt with noted flat troponin and no complaints of chest pain - Continue pts home cardiac meds, including Ranexa 1000mg po BID, Imdur 120mg po daily, and Nifedipine 60mg BID - Hold Losartan and HCTZ due to renal function (recently held as an outpt) PAD with hx of previous arthrectomy and stent to left SFA in 2013 - Cont. ASA and Plavix for now unless GI procedure is planned Hyperlipidemia - Cont. home meds Chronic anemia - Labs are stable - Monitor (2) Dysphagia ICD Codes: R13.10 - Dysphagia, unspecified Status: Chronic (3) Weight loss ICD Codes: R63.4 - Abnormal weight loss Status: Acute (4) Elevated troponin ICD Codes: R79.89 - Elevated troponin Status: Acute (5) Nausea & vomiting ICD Codes: R11.2 - Nausea & vomiting Status: Acute (6) HTN (hypertension) ICD Codes: I10 - HTN (hypertension) Status: Chronic (7) Diabetes ICD Codes: E11.9 - Diabetes Status: Chronic (8) CAD (coronary artery disease) ICD Codes: I25.10 - CAD (coronary artery disease) Status: Chronic (9) PVD (peripheral vascular disease) ICD Codes: I73.9 - PVD (peripheral vascular disease) Status: Chronic Physician Certification 2 Midnight Certification Type: Admission for Inpatient Services Order for Inpatient Services The services are ordered in accordance with Medicare regulations or non- Medicare payer requirements, as applicable. In the case of services not specified as inpatient-only, they are appropriately provided as inpatient services in accordance with the 2-midnight benchmark. Estimated LOS (days): 3 3 days is the estimated time the patient will need to remain in the hospital, assuming treatment plan goals are met and no additional complications. Post-Hospital Plan: Not yet determined Problem Qualifiers (1) Acute on chronic kidney failure: (2) HTN (hypertension): Qualified Codes: I10 - Essential (primary) hypertension (3) Diabetes: Mary Munoz Sep 07, 2017 14:09
[2017-09-07] MEDS ORDERED: PANTOPRAZOLE SODIUM 40 MG VIAL IV PUSH SCH (14:15)
[2017-09-07] MEDS ORDERED: RANE1000 PO (14:48)
[2017-09-07] MEDS ORDERED: SODIUM CHLOR 0.9% 1000 ML INJ 1,000 ML OTHER PRN ×2 (14:54→15:00)
[2017-09-07] MEDS ORDERED: NITROGLYCERIN 0.4 MG SL 25 TABS/BTL SL PRN (15:00)
[2017-09-07] MEDS ORDERED: HEPARIN SODIUM - IV 10,000 UNITS/10 ML VIAL PRN (15:00)
[2017-09-07] MEDS ORDERED: ONDANSETRON HCL 4 MG/2 ML VIAL IV PUSH PRN (15:00)
[2017-09-07] MEDS ORDERED: MANNITOL 12.5 GM/50 ML VIAL IV PRN (15:00)
[2017-09-07] MEDS ORDERED: SODIUM CHLORIDE 0.9% FLUSH 10 ML FLUSH IV FLUSH PRN (15:00)
[2017-09-07] MEDS ORDERED: GENTAMICIN SULFATE 20 MG/2 ML VIAL OTHER PRN (15:00)
[2017-09-07] MEDS ORDERED: ALBUMIN 25% INJ 100 ML IV PRN (15:00)
[2017-09-07] MEDS ORDERED: diphenhydrAMINE HCL 25 MG CAP PO PRN (15:00)
[2017-09-07] MEDS ORDERED: HEPARIN SODIUM - IV 10,000 UNITS/10 ML VIAL IV FLUSH PRN (15:00)
[2017-09-07] MEDS ORDERED: SODIUM CHLOR 0.9% 1000 ML INJ 1,000 ML IV PRN (15:00)
[2017-09-07] MEDS ORDERED: NIFE60TA58 PO (15:00)
[2017-09-07] MEDS ORDERED: cloNIDine HCL 0.1 MG TAB PO PRN ×2 (15:00)
[2017-09-07] MEDS ORDERED: TAMS5CAP PO (15:05)
--- NOTE | 2017-09-07 15:08 | PD.CONS ---
HPI Service Nephrology Consult Requested By Dr. Gracia Reason for Consult End-stage renal disease Primary Care Physician Duke Rankin MD, PhD History of Present Illness Patient is a 77-year-old -[place] male with history of chronic kidney disease with approach end-stage renal disease, he has AV fistula placed in anticipation, he has lost weight, his dysphagia is getting worse, he is unable to swallow solid foods for past 2 week, he has underlying hypertension, patient had a dizzy spell, he said he he felt like he is passing out, is alert and responsive he denies any chest pain or shortness of breath, his main complaint is dysphagia and lack of appetite. He was at my clinic as outpatient yesterday and was advised to go on hemodialysis. Review of Systems Constitutional: COMPLAINS OF: Fatigue, Weight loss Gastrointestinal: COMPLAINS OF: Nausea, Difficulty Swallowing, Anorexia Musculoskeletal: COMPLAINS OF: Joint pain, Muscle aches Neurologic: COMPLAINS OF: Abnormal gait Psychiatric: COMPLAINS OF: Anxiety Past Family Social History Allergies: Coded Allergies: oyster extract (Unverified Allergy, Severe, 04/25/17) Past Medical History Chronic kidney disease stage V Hypertension Anemia Hyperparathyroidism Coronary artery disease Peripheral vascular disease Hyperlipidemia Gout Type 2 diabetes Past Surgical History AV fistula left arm Laser eye surgery In 2004 coronary artery bypass graft Left leg PTCA Reported Medications Reported Meds & Active Scripts Active Flexeril (Cyclobenzaprine HCl) 10 Mg Tab 10 Mg PO TID 7 Days Protonix (Pantoprazole Sodium) 40 Mg Tab 40 Mg PO DAILY Reported Nifedipine ER 24 HR (Nifedipine) 60 Mg Tab 60 Mg PO BID Ranexa ER 12 HR (Ranolazine) 1,000 Mg Tab 1,000 Mg PO BID Calcitriol 0.25 Mcg Cap 0.25 Mcg PO DAILY Ondansetron (Ondansetron HCl) 4 Mg Tab Mg PO PRN Lactulose Liq (Lactulose) 10 Gm/15 Ml Soln 10 Ml PO Q6H PRN Latanoprost Opth Drops (Latanoprost) 0.005% Drops 1 Drop EACH EYE HS Refrigerate until opened. [dorzolamide] Nitrostat SL (Nitroglycerin) 0.4 Mg Subl 0.4 Mg SL DIRECTED PRN 1 tablet under the tongue as needed for chest pain. Repeat every 5 minutes for a total of 3 DOSES or call 911 if NO relief. Darioin A-C Liq (Guaifenesin-Codeine Liq) 100-10 Mg/5 Ml Soln 5 Ml PO Q4H PRN Plavix (Clopidogrel Bisulfate) 75 Mg Tab 75 Mg PO DAILY Isosorbide Mononitrate ER (Isosorbide Mononitrate) 120 Mg Rei 120 Mg PO DAILY Allopurinol 100 Mg Tab 100 Mg PO DAILY Atorvastatin (Atorvastatin Calcium) 80 Mg Tab 80 Mg PO HS Vitamin D-3 (Cholecalciferol) 1,000 Unit Cap Hydrochlorothiazide 25 Mg Tab 25 Mg PO DAILY Aspirin EC (Aspirin) 81 Mg Tabdr 81 Mg PO DAILY Losartan (Losartan Potassium) 100 Mg Tab 100 Mg PO DAILY Active Ordered Medications Current Medications Medications (Trade) Dose Ordered Sig/[place] Route Start Time Stop Time Status Last Admin (Ecotrin Ec) 81 mg DAILY PO 09/08/17 09:00 (Lipitor) 80 mg HS PO 09/07/17 21:00 (Plavix) 75 mg DAILY PO 09/08/17 09:00 (Imdur) 120 mg DAILY PO 09/07/17 12:00 09/07/17 12:34 (Tylenol) 650 mg Q4H PRN PO 09/07/17 12:00 (Zofran Inj) 4 mg Q6H PRN IV 09/07/17 12:00 (Xalatan 0.005% Opth Soln) 1 drop HS EACH EYE 09/07/17 21:00 Sodium Chloride 1,000 ml @ 42 mls/hr [id number] IV 09/07/17 15:00 (Catapres) 0.1 mg Q6H PRN PO 09/07/17 15:00 (Lactulose Liq) 10 ml DAILY PRN PO 09/07/17 15:00 (Protonix Inj) 40 mg Q12H IV PUSH 09/07/17 21:00 (Ranexa) 1,000 mg Q12HR PO 09/07/17 21:00 UNV Family History Noncontributory Social History History of smoking in the past: Denies alcohol Physical Exam Vital Signs Vital Signs Date Time Temp Pulse Resp B/P (MAP) Pulse Ox O2 Delivery O2 Flow Rate FiO2 09/07/17 11:39 66 18 166/72 (103) 97 Nasal Cannula 2.00 4/7/18 07:26 97 Nasal Cannula 2.00 09/07/17 07:26 97 Nasal Cannula 2.00 09/07/17 06:29 98.1 66 16 148/69 (95) 99 Physical Exam GENERAL: Well-nourished, well-developed patient. SKIN: Warm and dry. HEAD: Normocephalic. EYES: No scleral icterus. No injection or drainage. NECK: Supple, trachea midline. No JVD or lymphadenopathy. CARDIOVASCULAR: Regular rate and rhythm without murmurs, gallops, or rubs. RESPIRATORY: Breath sounds equal bilaterally. No accessory muscle use. GASTROINTESTINAL: Abdomen soft, non-tender, nondistended. EXTREMITIES: No cyanosis, or edema. Left arm AV fistula NEUROLOGICAL: Awake, alert, and oriented x 3. Non-focal. Laboratory Laboratory Tests Test 09/07/17 07:29 09/07/17 11:48 White Blood Count 9.3 Red Blood Count 2.88 Hemoglobin 9.1 Hematocrit 26.5 Mean Corpuscular Volume 92.1 Mean Corpuscular Hemoglobin 31.7 Mean Corpuscular Hemoglobin Concent 34.4 Red Cell Distribution Width 14.4 Platelet Count 216 Mean Platelet Volume 8.4 Neutrophils (%) (Auto) 65.0 Lymphocytes (%) (Auto) 22.3 Monocytes (%) (Auto) 11.7 Eosinophils (%) (Auto) 0.7 Basophils (%) (Auto) 0.3 Neutrophils # (Auto) 6.1 Lymphocytes # (Auto) 2.1 Monocytes # (Auto) 1.1 Eosinophils # (Auto) 0.1 Basophils # (Auto) 0.0 CBC Comment DIFF FINAL Differential Comment Blood Urea Nitrogen 74 Creatinine 6.51 Random Glucose 106 Total Protein 7.8 Albumin 3.6 Calcium Level 9.4 Alkaline Phosphatase 92 Aspartate Amino Transf (AST/SGOT) 17 Alanine Aminotransferase (ALT/SGPT) 18 Total Bilirubin 0.4 Sodium Level 133 Potassium Level 5.1 Chloride Level 99 Carbon Dioxide Level 25.6 Anion Gap 8 Estimat Glomerular Filtration Rate 10 Troponin I 1.40 1.41 Result Diagram: 09/07/17 0729 09/07/17 0729 Imaging Last Impressions Chest X-Ray 09/07/17 0000 Signed Impressions: Service Date/Time: Thursday, September 07, 2017 07:24 - CONCLUSION: No acute disease. Carola Lilly MD Assessment and Plan Problem List: (1) ESRD (end stage renal disease) ICD Codes: N18.6 - End stage renal disease Plan: Patient has marked weight loss and has uremia, patient is advised to go on hemodialysis, he has AV fistula in place Continue supportive care Discussed with family Follow BMP 1835 seen during HD UF 1.5 L doing well (2) Weight loss ICD Codes: R63.4 - Abnormal weight loss Status: Acute Plan: Patient has barium swallow ordered and this will be done (3) Diabetes ICD Codes: E11.9 - Diabetes Status: Chronic Plan: Continue to observe (4) HTN (hypertension) ICD Codes: I10 - HTN (hypertension) Status: Chronic Plan: Patient will be monitor Problem Qualifiers (1) Diabetes: (2) HTN (hypertension): Qualified Codes: I10 - Essential (primary) hypertension Mi Landrum MD Sep 07, 2017 15:08
[2017-09-07] MEDS: SODIUM CHLOR 0.9% 1000 ML INJ 1,000 ML IV SCH (15:12)
[2017-09-07 15:19] VITALS: BP 160/86; PULSE 79; RESP 18; O2SAT 95
--- NOTE | 2017-09-07 15:37 | PD.CONS ---
HPI History of Present Illness This is a 77 year old AA male with CAD with hx of [place] s/p cardiac stents and CABG x 5, PAD, HTN, CKD stage. who presents to the ED for increased generalized weakness. GI have been consulted for evaluation of dysphagia.This is worsening for the past 6-7 months, but for the past 3 weeks, pt has inability to tolerate solids and has been on soft diet and insure. Reports nausea and mild abd pain. Pt states that he has lost about 30lbs in the last 6 months. He is on Omeprazole at home, EGD was yrs ago. (Jenae Roger) PFSH Past Medical History CAD with cardiac stents and CABG x 5 in 2005 NSTEMI in 2013, medically managed Chronic angina Carotid artery stenosis PAD with claudication HTN Hyperlipidemia CKD stage V, not yet on HD Diabetes, Hgb A1C 5.2% in 06/2017 Chronic anemia 2D echo (07/2015) - Moderate LVH - Estimated EF 55-60% - Grade III diastolic dysfunction - Trace mitral regurg - Trace tricuspid valve regurg - Estimated PA pressure 35mmHg Past Surgical History CABG x5 2005 Cardiac stents LUE fistula placed 2014 colonoscopy (Jenae Roger) Coded Allergies: oyster extract (Unverified Allergy, Severe, 04/25/17) Medications Current Medications Medications (Trade) Dose Ordered Sig/[place] Route Start Time Stop Time Status Last Admin (Ecotrin Ec) 81 mg DAILY PO 09/08/17 09:00 (Lipitor) 80 mg HS PO 09/07/17 21:00 (Plavix) 75 mg DAILY PO 09/08/17 09:00 (Imdur) 120 mg DAILY PO 09/07/17 12:00 09/07/17 12:34 (Tylenol) 650 mg Q4H PRN PO 09/07/17 12:00 (Zofran Inj) 4 mg Q6H PRN IV 09/07/17 12:00 (Xalatan 0.005% Opth Soln) 1 drop HS EACH EYE 09/07/17 21:00 Sodium Chloride 1,000 ml @ 42 mls/hr [id number] IV 09/07/17 15:00 09/07/17 15:12 (Catapres) 0.1 mg Q6H PRN PO 09/07/17 15:00 (Lactulose Liq) 10 ml DAILY PRN PO 09/07/17 15:00 (Protonix Inj) 40 mg Q12H IV PUSH 09/07/17 21:00 (Ranexa) 1,000 mg Q12HR PO 09/07/17 21:00 Sodium Chloride 1,000 ml @ 0 mls/hr Q0M PRN OTHER 09/07/17 15:00 (Heparin Inj) 8,000 units UNSCH PRN IV FLUSH 09/07/17 15:00 Sodium Chloride 1,000 ml @ 200 mls/hr Q5H PRN IV 09/07/17 15:00 Sodium Chloride 1,000 ml @ 0 mls/hr Q0M PRN OTHER 09/07/17 14:54 (Mannitol Inj) 12.5 gm UNSCH PRN IV 09/07/17 15:00 Albumin Human 100 ml @ 60 mls/hr UNSCH PRN IV 09/07/17 15:00 (NS Flush) 5 ml UNSCH PRN IV FLUSH 09/07/17 15:00 (Heparin Inj) UNSCH PRN .XX 09/07/17 15:00 (Gentamicin Inj) 20 mg UNSCH PRN OTHER 09/07/17 15:00 (Zofran Inj) 4 mg UNSCH PRN IV PUSH 09/07/17 15:00 (Tylenol) 650 mg UNSCH PRN PO 09/07/17 15:00 (Benadryl) 25 mg UNSCH PRN PO 09/07/17 15:00 (Nitrostat Sl) 0.4 mg UNSCH PRN SL 09/07/17 15:00 (Catapres) 0.1 mg UNSCH PRN PO 09/07/17 15:00 (Epogen Inj) 4,000 units UNSCH PRN IV PUSH 09/07/17 15:00 (Gelfoam 12 Mm/7 Mm Top) 1 foam UNSCH PRN TOP 09/07/17 15:00 (Procardia Xl) 60 mg BID PO 09/07/17 21:00 (Rocaltrol) 0.25 mcg DAILY PO 09/08/17 09:00 Family History Non contributory Social History Denies ETOH use Quit smoking 15 years ago, prior to that has a 25 pack year history (Jenae Roger) Review of Systems Constitutional: COMPLAINS OF: Fatigue, Weight loss, Change in appetite Endocrine: DENIES: Polyuria Eyes: DENIES: Double Vision Ears, nose, mouth, throat: DENIES: Hoarseness Respiratory: DENIES: Shortness of breath Cardiovascular: DENIES: Lower Extremity Edema Gastrointestinal: COMPLAINS OF: Abdominal pain, Constipation, Nausea, Vomiting , Difficulty Swallowing, Anorexia, DENIES: Black stools, Bloody stools, Diarrhea , Odynophagia, Swelling of Abdomen, Heartburn, Hematemesis Genitourinary: DENIES: Hematuria Musculoskeletal: DENIES: Neck pain Integumentary: DENIES: Jaundice Hematologic/lymphatic: DENIES: Bruising Immunologic/allergic: DENIES: Eczema Neurologic: DENIES: Abnormal gait Psychiatric: DENIES: Anxiety ([place]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 Carola Lilly MD Laboratory Test 09/07/17 07:29 09/07/17 11:48 09/07/17 14:53 White Blood Count 9.3 TH/MM3 Red Blood Count 2.88 MIL/MM3 Hemoglobin 9.1 GM/DL Hematocrit 26.5 % Mean Corpuscular Volume 92.1 FL Mean Corpuscular Hemoglobin 31.7 PG Mean Corpuscular Hemoglobin Concent 34.4 % Red Cell Distribution Width 14.4 % Platelet Count 216 TH/MM3 Mean Platelet Volume 8.4 FL Neutrophils (%) (Auto) 65.0 % Lymphocytes (%) (Auto) 22.3 % Monocytes (%) (Auto) 11.7 % Eosinophils (%) (Auto) 0.7 % Basophils (%) (Auto) 0.3 % Neutrophils # (Auto) 6.1 TH/MM3 Lymphocytes # (Auto) 2.1 TH/MM3 Monocytes # (Auto) 1.1 TH/MM3 Eosinophils # (Auto) 0.1 TH/MM3 Basophils # (Auto) 0.0 TH/MM3 CBC Comment DIFF FINAL Differential Comment Blood Urea Nitrogen 74 MG/DL Creatinine 6.51 MG/DL Random Glucose 106 MG/DL Total Protein 7.8 GM/DL Albumin 3.6 GM/DL Calcium Level 9.4 MG/DL Alkaline Phosphatase 92 U/L Aspartate Amino Transf (AST/SGOT) 17 U/L Alanine Aminotransferase (ALT/SGPT) 18 U/L Total Bilirubin 0.4 MG/DL Sodium Level 133 MEQ/L Potassium Level 5.1 MEQ/L Chloride Level 99 MEQ/L Carbon Dioxide Level 25.6 MEQ/L Anion Gap 8 MEQ/L Estimat Glomerular Filtration Rate 10 ML/MIN Troponin I 1.40 NG/ML 1.41 NG/ML Physical Examination HEENT: normocephalic; atraumatic; no jaundice. CHEST: Chest is clear to auscultation and percussion. CARDIAC: Regular rate and rhythm ABDOMEN: Soft, nondistended, nontender; no hepatosplenomegaly; bowel sounds are present in all four quadrants. EXTREMITIES: No clubbing, cyanosis, or edema. SKIN: Normal; no rash; no jaundice. CHURNER: No focal deficits; alert and oriented times three. (Jenae Roger) Assessment and Plan Plan - Worsening dysphagia for the past 6-7 months, but for the past 3 weeks, pt has inability to tolerate solids and has been on soft diet and insure. Reports nausea and mild abd pain. Pt states that he has lost about 30lbs in the last 6 months. He is on Omeprazole at home, EGD was yrs ago. - Hx of CAD with hx of [place] s/p cardiac stents and CABG x 5, PAD, HTN, CKD stage. per attending Plan: - BS - EGD/dill on Saturday - Supportive care - Patient seen and examined by Dr. 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 Possible egd/dilation on saturday. Very high risk for sedation. Discussed with family at the bedside. Thank you (Vitaliy Faith MD) Jenae Roger [facility] Sep 07, 2017 15:37 Vitaliy Faith MD Sep 07, 2017 17:19
[2017-09-07 15:47] LABS: BILIRUBIN, URINE NEG (NEG); BLOOD, URINE NEG (NEG); GLUCOSE,URINE NEG (NEG); KETONE, URINE NEG (NEG); MUCUS URINE FEW /lpf (OCC); NITRITE,URINE NEG (NEG); SQUAMOUS EPITHELIAL CELL URINE 1 /hpf (0-5); URINE COLOR YELLOW (YELLW/STRAW); URINE LEUKOCYTE ESTERASE NEG (NEG)
--- NOTE | 2017-09-07 18:02 | RADRPT ---
EXAM DATE/TIME: 09/07/2017 17:45 [facility] COMPARISON: No previous studies available for comparison. INDICATIONS : Dysphagia. FLUORO TIME: 0.5 minutes IMAGE COUNT: 5 CONTRAST: 1. E-Z HD Barium Sulfate (98% w/w) MEDICAL HISTORY : Hypertension. Myocardial infarction. Diabetes mellitus type II. Afib. SURGICAL HISTORY : CABG. Cardiac cath. ENCOUNTER: Initial ACUITY: 4 - 6 months PAIN SCORE: 0/10 LOCATION: Throat. FINDINGS: Patient ingested contrast without difficulty. Cervical and thoracic esophagus are unremarkable. There are no obstructing or constricting lesions. There are no intraluminal filling defects or mucosal abn ormalities. CONCLUSION: No obstructing or constricting abnormality identified Arnulfo Skaggs MD on September 07, 2017 at 17:58 Board Certified Radiologist. This report was verified electronically.
--- NOTE | 2017-09-07 18:06 | EKG ---
Date Performed: 09/07/2017 Time Performed: 06:51:52 PTAGE: 77 years EKG: Sinus rhythm WITH FIRST DEGREE AV BLOCK INTRAVENTRICULAR CONDUCTION DELAY Compared to previous tracing, the ST-T changes have improved. Intraventricular conduction is slightly more prominent. PACs are no longer pre sent ABNORMAL ECG NO PREVIOUS TRACING DOCTOR: Pierre Doherty Interpretating Date/Time 09/07/2017 18:05:29
[2017-09-07] MEDS: EPOETIN ALFA 10,000 UNITS/ML VIAL IV PUSH PRN (19:22)
[2017-09-07] MEDS: GELATIN 12 MM/7 MM FOAM TOP PRN (19:23)
[2017-09-07 20:00] VITALS: BP 172/81; PULSE 89; RESP 18; TEMP 97.9; O2SAT 100
[2017-09-07] MEDS: RANOLAZINE 500 MG EXTENDED RELEASE TAB PO SCH ×2 (21:00→22:23)
[2017-09-07] MEDS: LATANOPROST 0.005% OPHT SOLN 2.5 ML BTL EACH EYE SCH ×2 (21:00→22:23)
--- NOTE | 2017-09-07 21:43 | RADRPT ---
EXAM DATE/TIME: 09/07/2017 20:44 [facility] COMPARISON: No previous studies available for comparison. INDICATIONS : Upper extremity weakness. RADIATION DOSE: 17.34 CTDIvol (mGy) MEDICAL HISTORY : Cardiovascular disease. Renal failure, chronic. SURGICAL HISTORY : CABG ENCOUNTER: Initial ACUITY: 1 day PAIN SCALE: 5/10 LOCATION: Bilateral neck TECHNIQUE: Volumetric scanning of the cervical spine was performed. Multiplanar reconstructions in the sagittal, coronal and oblique axial planes were performed. Using automated exposure control and adjustment o f the mA and/or kV according to patient size, radiation dose was kept as low as reasonably achievable to obtain optimal diagnostic quality images. DICOM format image data is available electronically f or review and comparison. FINDINGS: VERTEBRAE: Normal vertebral body height. ALIGNMENT: No evidence of subluxation. C2-C3: The bony spinal canal is normal in size. No evidence of disc bulge or herniation. The neural forami na are bilaterally patent. There is right facet hypertrophy. C3-C4: There is minimal bulging of posterior osteophytic ridging without significant stenosis. There is bila teral facet hypertrophy. The neural foramina are bilaterally patent. C4-C5: There is minimal bulging of posterior osteophytic ridging without significant stenosis. There is bila teral facet hypertrophy and uncovertebral hypertrophy. There is mild left neural foraminal narrowing. The right neural foramen is patent. Anterior osteophytes are seen. C5-C6: The bony spinal canal is normal in size. No evidence of disc bulge or herniation. There is facet an d uncovertebral hypertrophy. The neural foramina are bilaterally patent. Anterior osteophytes are see n C6-C7: The bony spinal canal is normal in size. No evidence of disc bulge or herniation. The neural forami na are bilaterally patent. Anterior osteophytes are seen C7-T1: The bony spinal canal is normal in size. No evidence of disc bulge or herniation. The neural forami na are bilaterally patent. CONCLUSION: Degenerative change as described above. Angelo Narayanan MD on September 07, 2017 at 21:36 Board Certified Radiologist. This report was verified electronically.
[2017-09-07] MEDS: PANTOPRAZOLE SODIUM 40 MG VIAL IV PUSH SCH (21:53)
[2017-09-07] MEDS: NIFEdipine 60 MG SUSTAINED RELEASE TAB PO SCH (21:54)
[2017-09-07] MEDS: ATORVASTATIN 80 MG TAB PO SCH (21:54)
[2017-09-07 23:26] VITALS: PULSE 78
[2017-09-08] VITALS (7 sets, daily range): BP systolic 138–200; BP diastolic 63–87; PULSE 66–82; RESP 16–18; TEMP 97.7–98.6; O2SAT 94–100
[2017-09-08 07:59] LABS: AUTOMATED NEUTROPHIL # 6.4 TH/MM3 (1.8-7.7); BASOPHIL % 0.4 % (0.0-2.0); EOSINOPHIL % 0.1 % (0.0-4.0); HEMATOCRIT 26.8 % (39.0-51.0); HEMOGLOBIN 9.1 GM/DL (13.0-17.0); LYMPH % 16.5 % (9.0-44.0); LYMPHOCYTE # 1.4 TH/MM3 (1.0-4.8); MEAN CELL VOLUME 92.9 FL (80.0-100.0); MEAN CORPUSCULAR HEMOGLOBIN 31.5 PG (27.0-34.0); MEAN PLATELET VOLUME 8.4 FL (7.0-11.0); MONO % 7.7 % (0.0-8.0); MONOCYTE # 0.7 TH/MM3 (0-0.9); NEUT % 75.3 % (16.0-70.0); PLATELET COUNT 207 TH/MM3 (150-450); RED BLOOD COUNT 2.89 MIL/MM3 (4.50-5.90); RED CELL DISTRIBUTION WIDTH 14.4 % (11.6-17.2); WHITE BLOOD COUNT 8.5 TH/MM3 (4.0-11.0)
[2017-09-08 08:46] LABS: BICARBONATE 27.4 MEQ/L (21.0-32.0); CREATININE 4.97 MG/DL (0.60-1.30); MAGNESIUM 2.2 MG/DL (1.5-2.5)
[2017-09-08] MEDS: NIFEdipine 60 MG SUSTAINED RELEASE TAB PO SCH ×2 (08:58→19:52)
[2017-09-08] MEDS: PANTOPRAZOLE SODIUM 40 MG VIAL IV PUSH SCH ×2 (08:58→19:51)
[2017-09-08] MEDS: ISOSORBIDE MONONITRATE 60 MG CR TAB (IMDUR) PO SCH (08:58)
[2017-09-08] MEDS: CALCITRIOL 0.25 MCG CAP PO SCH (08:58)
[2017-09-08] MEDS ORDERED: ASPIRIN EC 81 MG TABEC PO SCH (09:00)
[2017-09-08] MEDS ORDERED: CLOPIDOGREL 75 MG TAB PO SCH (09:00)
--- NOTE | 2017-09-08 09:45 | HHI.PR ---
Subjective Remarks no new problems Objective Vitals heart reg lung cta abd s/nt ext no edema fistula Vital Signs Date Time Temp Pulse Resp B/P (MAP) Pulse Ox O2 Delivery O2 Flow Rate FiO2 09/08/17 08:00 Room Air 09/08/17 08:00 98.2 72 16 138/65 (89) 100 09/08/17 04:00 70 09/08/17 04:00 98.1 70 18 166/75 (105) 99 09/08/17 04:00 Room Air 09/08/17 00:00 Room Air 09/08/17 00:00 82 09/08/17 00:00 98.0 80 16 200/87 (124) 98 09/07/17 23:26 78 09/07/17 21:30 Room Air 09/07/17 20:00 97.9 89 18 172/81 (111) 100 09/07/17 15:19 79 18 160/86 (110) 95 Room Air 09/07/17 11:39 66 18 166/72 (103) 97 Nasal Cannula 2.00 Result Diagram: 09/08/17 0644 09/08/17 0644 Imaging Last Impressions Chest X-Ray 09/07/17 0000 Signed Impressions: Service Date/Time: Thursday, September 07, 2017 07:24 - CONCLUSION: No acute disease. Carola Lilly MD A/P Problem List: (1) Acute on chronic kidney failure ICD Codes: N17.9 - Acute kidney failure, unspecified; N18.9 - Chronic kidney disease, unspecified Status: Acute Plan: Acute on chronic renal failure Dehydration Poor oral intake - Pt is a 76 y/o AAM with CAD with hx of NV s/p cardiac stents and CABG x 5, PAD , HTN, CKD stage V followed by Dr. Landrum. Pt has left arm fistula placed 2014. - He presented to the ED at [facility] with various complaints. He states that he woke up and felt like he had increased generalized weakness and had a sensation like he might pass out. He did feel some SOB like it was hard for him to breath. He has not been eating or drinking well more recently because its been hard for him to swallow. Pt also reports that in the last week or so his UOP has decreased. He does feel occasionally dizzy when standing up. - Pts labs at admission noted a worsening of his baseline renal function with Cr 6.51, GFR 10 Pt was seen by Dr[address] Landrum for a regular visit and it was felt that he was ready to start dialysis per the pts but this has not been initiated yet. - Consulted nephrology, Dr. Landrum - Hemodialysis initiated on 09/07 Dysphagia Weight loss - Pt has been unable to eat solid foods for the last 6-7 months. He is able to drinking fluids or Ensure slowly. - Twice he had episodes of vomiting last week after an episode of gagging on food. - Pt was seen by GI in December 2016 for complaints of dysphagia but his daughter reports that the pt was felt to be high risk for anesthesia and the pt and family decided to hold off on endoscopy at this time. He was sent for an outpt UGI and Barium swallow in December 2016 which were both negative.Pt states that he has lost about 30lbs in the last 6 months. - Start Protonix 40mg IV BID - Consulted GI and they are planning EGD on Saturday. - Barium swallow 09/07 unremarkable for etiology of his dysphagia. Bilateral UE weakness/spasms - Check CT Cervical spine, noncontrasted shows degenerative disc dz. CAD with hx of NV s/p CABG and stenting Hx of chronic angina Elevated troponin HTN - Pt with noted flat troponin and no complaints of chest pain - Continue pts home cardiac meds, including Ranexa 1000mg po BID, Imdur 120mg po daily, and Nifedipine 60mg BID - Hold Losartan and HCTZ due to renal function (recently held as an outpt) PAD with hx of previous arthrectomy and stent to left SFA in 2013 - Cont. ASA and Plavix for now unless GI procedure is planned Hyperlipidemia - Cont. home meds Chronic anemia - Labs are stable - Monitor (2) Dysphagia ICD Codes: R13.10 - Dysphagia, unspecified Status: Chronic (3) Weight loss ICD Codes: R63.4 - Abnormal weight loss Status: Acute (4) Elevated troponin ICD Codes: R79.89 - Elevated troponin Status: Acute (5) Nausea & vomiting ICD Codes: R11.2 - Nausea & vomiting Status: Acute (6) HTN (hypertension) ICD Codes: I10 - HTN (hypertension) Status: Chronic (7) Diabetes ICD Codes: E11.9 - Diabetes Status: Chronic (8) CAD (coronary artery disease) ICD Codes: I25.10 - CAD (coronary artery disease) Status: Chronic (9) PVD (peripheral vascular disease) ICD Codes: I73.9 - PVD (peripheral vascular disease) Status: Chronic Problem Qualifiers (1) Acute on chronic kidney failure: (2) HTN (hypertension): Qualified Codes: I10 - Essential (primary) hypertension (3) Diabetes: Pierre Narvaez MD Sep 08, 2017 09:45
--- NOTE | 2017-09-08 12:58 | HHI.GIFU ---
GI Follow-up Note Consult Follow-up Subjective: Patient laying in bed comfortably, no new complaints except dysphagia Objective: PHYSICAL EXAMINATION: Vitals signs stable No fever HEENT: Pupils round and reactive to light; normocephalic; atraumatic; no jaundice. Throat is clear. NECK: Neck is supple, no JVD, no lymphadenopathy. CHEST: Chest is clear to auscultation and percussion. CARDIAC: Regular rate and rhythm with no murmur gallop or rubs. ABDOMEN: Soft, nondistended, nontender; no hepatosplenomegaly; bowel sounds are present in all four quadrants. EXTREMITIES: No clubbing, cyanosis, or edema. SKIN: Normal; no rash; no jaundice. 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 Available Data (labs, X- Rays, Procedues) : Last Impressions Chest X-Ray 09/07/17 0000 Signed Impressions: Service Date/Time: Thursday, September 07, 2017 07:24 - CONCLUSION: No acute disease. Carola Lilly MD Cervical Spine CT 09/07/17 0000 Signed Impressions: Service Date/Time: Thursday, September 07, 2017 20:44 - CONCLUSION: Degenerative change as described above. Angelo Narayanan MD Barium Swallow X-Ray 09/07/17 0000 Signed Impressions: Service Date/Time: Thursday, September 07, 2017 17:45 - CONCLUSION: No obstructing or constricting abnormality identified Arnulfo Skaggs MD Laboratory Tests Test 09/07/17 07:29 09/07/17 11:48 09/07/17 14:53 09/07/17 15:20 White Blood Count 9.3 TH/MM3 Red Blood Count 2.88 MIL/MM3 Hemoglobin 9.1 GM/DL Hematocrit 26.5 % Mean Corpuscular Volume 92.1 FL Mean Corpuscular Hemoglobin 31.7 PG Mean Corpuscular Hemoglobin Concent 34.4 % Red Cell Distribution Width 14.4 % Platelet Count 216 TH/MM3 Mean Platelet Volume 8.4 FL Neutrophils (%) (Auto) 65.0 % Lymphocytes (%) (Auto) 22.3 % Monocytes (%) (Auto) 11.7 % Eosinophils (%) (Auto) 0.7 % Basophils (%) (Auto) 0.3 % Neutrophils # (Auto) 6.1 TH/MM3 Lymphocytes # (Auto) 2.1 TH/MM3 Monocytes # (Auto) 1.1 TH/MM3 Eosinophils # (Auto) 0.1 TH/MM3 Basophils # (Auto) 0.0 TH/MM3 CBC Comment DIFF FINAL Differential Comment Blood Urea Nitrogen 74 MG/DL Creatinine 6.51 MG/DL Random Glucose 106 MG/DL Total Protein 7.8 GM/DL Albumin 3.6 GM/DL Calcium Level 9.4 MG/DL Alkaline Phosphatase 92 U/L Aspartate Amino Transf (AST/SGOT) 17 U/L Alanine Aminotransferase (ALT/SGPT) 18 U/L Total Bilirubin 0.4 MG/DL Sodium Level 133 MEQ/L Potassium Level 5.1 MEQ/L Chloride Level 99 MEQ/L Carbon Dioxide Level 25.6 MEQ/L Anion Gap 8 MEQ/L Estimat Glomerular Filtration Rate 10 ML/MIN Troponin I 1.40 NG/ML 1.41 NG/ML 1.42 NG/ML Urine Color YELLOW Urine Turbidity CLEAR Urine pH 7.0 Urine Specific [place] 1.013 Urine Protein 100 mg/dL Urine Glucose (UA) NEG mg/dL Urine Ketones NEG mg/dL Urine Occult Blood NEG Urine Nitrite NEG Urine Bilirubin NEG Urine Urobilinogen LESS THAN 2.0 MG/DL Urine Leukocyte Esterase NEG Urine RBC LESS THAN 1 /hpf Urine WBC LESS THAN 1 /hpf Urine Squamous Epithelial Cells 1 /hpf Urine Mucus FEW /lpf Microscopic Urinalysis Comment CULT NOT INDICATED Test 09/07/17 16:10 09/08/17 06:44 Hepatitis A IgM Antibody NONREACTIVE Hepatitis B Surface Antigen NONREACTIVE Hepatitis B Core IgM Antibody NONREACTIVE Hepatitis C IgG Antibody NONREACTIVE White Blood Count 8.5 TH/MM3 Red Blood Count 2.89 MIL/MM3 Hemoglobin 9.1 GM/DL Hematocrit 26.8 % Mean Corpuscular Volume 92.9 FL Mean Corpuscular Hemoglobin 31.5 PG Mean Corpuscular Hemoglobin Concent 34.0 % Red Cell Distribution Width 14.4 % Platelet Count 207 TH/MM3 Mean Platelet Volume 8.4 FL Neutrophils (%) (Auto) 75.3 % Lymphocytes (%) (Auto) 16.5 % Monocytes (%) (Auto) 7.7 % Eosinophils (%) (Auto) 0.1 % Basophils (%) (Auto) 0.4 % Neutrophils # (Auto) 6.4 TH/MM3 Lymphocytes # (Auto) 1.4 TH/MM3 Monocytes # (Auto) 0.7 TH/MM3 Eosinophils # (Auto) 0.0 TH/MM3 Basophils # (Auto) 0.0 TH/MM3 CBC Comment DIFF FINAL Differential Comment Blood Urea Nitrogen 51 MG/DL Creatinine 4.97 MG/DL Random Glucose 86 MG/DL Calcium Level 9.0 MG/DL Magnesium Level 2.2 MG/DL Sodium Level 137 MEQ/L Potassium Level 4.1 MEQ/L Chloride Level 100 MEQ/L Carbon Dioxide Level 27.4 MEQ/L Anion Gap 10 MEQ/L Estimat Glomerular Filtration Rate 14 ML/MIN Allergies Coded Allergies Type Severity Reaction Last Updated Verified oyster extract Allergy Severe 04/25/17 No Active Scripts Medications Dose Route/Sig Max Daily Dose Days Date Category Dose Instructions Flomax (Tamsulosin HCl) 0.4 Mg Cap 0.4 Mg PO HS 09/07/17 Reported Nifedipine ER 24 HR (Nifedipine) 60 Mg Tab 60 Mg PO BID 09/07/17 Reported Ranexa ER 12 HR (Ranolazine) 1,000 Mg Tab 1,000 Mg PO BID 09/07/17 Reported Calcitriol 0.25 Mcg Cap 0.25 Mcg PO DAILY 09/07/17 Reported Ondansetron (Ondansetron HCl) 4 Mg Tab Mg PO PRN 09/07/17 Reported Lactulose Liq (Lactulose) 10 Gm/15 Ml Soln 10 Ml PO Q6H PRN 09/07/17 Reported Latanoprost Opth Drops (Latanoprost) 0.005% Drops 1 Drop EACH EYE HS 09/07/17 Reported Refrigerate until opened. [dorzolamide] 09/07/17 Reported Flexeril (Cyclobenzaprine HCl) 10 Mg Tab 10 Mg PO TID 7 04/26/17 Rx Protonix (Pantoprazole Sodium) 40 Mg Tab 40 Mg PO DAILY 04/26/17 Rx Nitrostat SL (Nitroglycerin) 0.4 Mg Subl 0.4 Mg SL DIRECTED PRN 04/25/17 Reported 1 tablet under the tongue as needed for chest pain. Repeat every 5 minutes for a total of 3 DOSES or call 911 if NO relief. Virtussin A-C Liq (Guaifenesin-Codeine Liq) 100-10 Mg/5 Ml Soln 5 Ml PO Q4H PRN 04/25/17 Reported Plavix (Clopidogrel Bisulfate) 75 Mg Tab 75 Mg PO DAILY 04/25/17 Reported Isosorbide Mononitrate ER (Isosorbide Mononitrate) 120 Mg Rei 120 Mg PO DAILY 04/25/17 Reported Allopurinol 100 Mg Tab 100 Mg PO DAILY 04/25/17 Reported Atorvastatin (Atorvastatin Calcium) 80 Mg Tab 80 Mg PO HS 04/25/17 Reported Vitamin D-3 (Cholecalciferol) 1,000 Unit Cap 04/25/17 Reported Hydrochlorothiazide 25 Mg Tab 25 Mg PO DAILY 04/25/17 Reported Aspirin EC (Aspirin) 81 Mg Tabdr 81 Mg PO DAILY 04/25/17 Reported Losartan (Losartan Potassium) 100 Mg Tab 100 Mg PO DAILY 04/25/17 Reported ASSESSMENT/PLAN: Seen and examined, Continued dysphagia. Barium swallow -ve. EGD /Dilation planned for tomorrow. Increased risks of anesthesia discussed with Him and Giulia his daughter. Dr. Méndez will follow. It was a pleasure seeing Ford Mcmullen. Thank you for this consult. Entered by: Vitaliy Britton MD Sep 08, 2017 12:58
--- NOTE | 2017-09-08 14:19 | HHI.NPPN ---
Subjective History of Present Illness 77-year-old black male with history of chronic kidney disease approaching ESRD has AV fistula, had dysphagia Review of Systems General Constitutional: Fatigue Objective Data Data Vital Signs Date Time Temp Pulse Resp B/P (MAP) Pulse Ox O2 Delivery O2 Flow Rate FiO2 09/08/17 12:00 97.8 66 18 151/66 (94) 100 09/08/17 08:00 Room Air 09/08/17 08:00 98.2 72 16 138/65 (89) 100 09/08/17 04:00 70 09/08/17 04:00 98.1 70 18 166/75 (105) 99 09/08/17 04:00 Room Air 09/08/17 00:00 Room Air 09/08/17 00:00 82 09/08/17 00:00 98.0 80 16 200/87 (124) 98 09/07/17 23:26 78 09/07/17 21:30 Room Air 09/07/17 20:00 97.9 89 18 172/81 (111) 100 09/07/17 15:19 79 18 160/86 (110) 95 Room Air -: 09/08/17 0644 09/08/17 0644 Physical Exam General Appearance: Well Developed, Well Nourished Neck Neck Exam: Neck Supple Pulmonary Resp Exam: Clear Bilaterally, Breath Sounds Equal Cardiology CV Exam: Regular, Normal Sinus Rhythm Gastrointestinal/Abdomen GI Exam: Soft, Non-Tender, Bowel Sounds Present Extremeties Extremities Exam: No Edema Neurologic Neuro Exam: Alert Assessment/Plan Problem List: (1) ESRD (end stage renal disease) ICD Codes: N18.6 - End stage renal disease Plan: Patient doing better he said he is eating better . Barium swallow was negative Endoscopy plan tomorrow Hemodialysis planned for tomorrow (2) Weight loss ICD Codes: R63.4 - Abnormal weight loss Status: Acute Plan: Patient barium swallow negative going to have endoscopy (3) Diabetes ICD Codes: E11.9 - Diabetes Status: Chronic Plan: Continue to observe (4) HTN (hypertension) ICD Codes: I10 - HTN (hypertension) Status: Chronic Plan: Patient will be monitor Problem Qualifiers (1) Diabetes: (2) HTN (hypertension): Qualified Codes: I10 - Essential (primary) hypertension Mi Landrum MD Sep 08, 2017 14:19
[2017-09-08] MEDS: SODIUM CHLOR 0.9% 1000 ML INJ 1,000 ML IV SCH (14:49)
--- NOTE | 2017-09-08 15:06 | HHI.GIFU ---
Subjective Remarks Resting in the bed Denies any current nausea or vomiting or abdominal pain Able to swallow meds with applesauce Afebrile Objective Vitals I&O Vital Signs Date Time Temp Pulse Resp B/P (MAP) Pulse Ox O2 Delivery O2 Flow Rate FiO2 09/08/17 12:00 97.8 66 18 151/66 (94) 100 09/08/17 08:00 Room Air 09/08/17 08:00 98.2 72 16 138/65 (89) 100 09/08/17 04:00 70 09/08/17 04:00 98.1 70 18 166/75 (105) 99 09/08/17 04:00 Room Air 09/08/17 00:00 Room Air 09/08/17 00:00 82 09/08/17 00:00 98.0 80 16 200/87 (124) 98 09/07/17 23:26 78 09/07/17 21:30 Room Air 09/07/17 20:00 97.9 89 18 172/81 (111) 100 09/07/17 15:19 79 18 160/86 (110) 95 Room Air I/O 09/07/17 09/07/17 09/07/17 09/08/17 09/08/17 09/08/17 07:00 15:00 23:00 07:00 15:00 23:00 Intake Total 420 ml Balance 420 ml Intake IV Total 420 ml # Voids 1 # Bowel Movements 1 Laboratory Laboratory Tests Test 09/07/17 15:20 09/07/17 16:10 09/08/17 06:44 Urine Color YELLOW Urine Turbidity CLEAR Urine pH 7.0 Urine Specific [place] 1.013 Urine Protein 100 Urine Glucose (UA) NEG Urine Ketones NEG Urine Occult Blood NEG Urine Nitrite NEG Urine Bilirubin NEG Urine Urobilinogen LESS THAN 2.0 Urine Leukocyte Esterase NEG Urine RBC LESS THAN 1 Urine WBC LESS THAN 1 Urine Squamous Epithelial Cells 1 Urine Mucus FEW Microscopic Urinalysis Comment CULT NOT INDICATED Hepatitis A IgM Antibody NONREACTIVE Hepatitis B Surface Antigen NONREACTIVE Hepatitis B Core IgM Antibody NONREACTIVE Hepatitis C IgG Antibody NONREACTIVE White Blood Count 8.5 Red Blood Count 2.89 Hemoglobin 9.1 Hematocrit 26.8 Mean Corpuscular Volume 92.9 Mean Corpuscular Hemoglobin 31.5 Mean Corpuscular Hemoglobin Concent 34.0 Red Cell Distribution Width 14.4 Platelet Count 207 Mean Platelet Volume 8.4 Neutrophils (%) (Auto) 75.3 Lymphocytes (%) (Auto) 16.5 Monocytes (%) (Auto) 7.7 Eosinophils (%) (Auto) 0.1 Basophils (%) (Auto) 0.4 Neutrophils # (Auto) 6.4 Lymphocytes # (Auto) 1.4 Monocytes # (Auto) 0.7 Eosinophils # (Auto) 0.0 Basophils # (Auto) 0.0 CBC Comment DIFF FINAL Differential Comment Blood Urea Nitrogen 51 Creatinine 4.97 Random Glucose 86 Calcium Level 9.0 Magnesium Level 2.2 Sodium Level 137 Potassium Level 4.1 Chloride Level 100 Carbon Dioxide Level 27.4 Anion Gap 10 Estimat Glomerular Filtration Rate 14 Imaging Last Impressions Chest X-Ray 09/07/17 0000 Signed Impressions: Service Date/Time: Thursday, September 07, 2017 07:24 - CONCLUSION: No acute disease. Carola Lilly MD Cervical Spine CT 09/07/17 0000 Signed Impressions: Service Date/Time: Thursday, September 07, 2017 20:44 - CONCLUSION: Degenerative change as described above. Angelo Narayanan MD Barium Swallow X-Ray 09/07/17 0000 Signed Impressions: Service Date/Time: Thursday, September 07, 2017 17:45 - CONCLUSION: No obstructing or constricting abnormality identified Arnulfo Skaggs MD Physical Exam HEENT: Pupils round and reactive to light; normocephalic; atraumatic; no jaundice. NECK: Neck is supple, no JVD, no lymphadenopathy. CHEST: No obvious rhonchi or wheezing or shortness of breath CARDIAC: Regular rate and rhythm ABDOMEN: Soft, nondistended, nontender; no hepatosplenomegaly; bowel sounds are present in all four quadrants. EXTREMITIES: No clubbing, cyanosis, or edema. SKIN: Normal; no rash; no jaundice. ONCOLOGY RN: No focal deficits; alert and oriented times 2, speech clear Assessment and Plan Plan - Worsening dysphagia for the past 6-7 months, but for the past 3 weeks, pt has inability to tolerate solids and has been on soft diet and insure. Reports nausea and mild abd pain. Pt states that he has lost about 30lbs in the last 6 months. He is on Omeprazole at home, EGD was yrs ago. - Hx of CAD with hx of [place] s/p cardiac stents and CABG x 5, PAD, HTN, CKD stage. per attending 09/07/17 barium swallow showed no obvious obstructing stricture 09/08/17. Patient is waiting on to get hospital but wants information discussed with her. He is waiting to signed permeant until gets to hospital so she will know plan of care. He mentioned Dr. lamar doing the procedure? Current hemoglobin is 9.1 with no obvious bleeding. Anemia probable secondary to chronic disease Plan: - Diet - Consent for EGD/dill on Saturday -Nothing by mouth at midnight - Monitor labs with special attention to hemoglobin - Protonix drip - Supportive care - Patient seen and examined by Dr. Faith and myself and this note is written on his behalf Yola Perez Sep 08, 2017 15:06
[2017-09-08] MEDS: RANOLAZINE 500 MG EXTENDED RELEASE TAB PO SCH (19:52)
[2017-09-08] MEDS: ATORVASTATIN 80 MG TAB PO SCH (19:52)
[2017-09-09] VITALS (8 sets, daily range): BP systolic 129–166; BP diastolic 58–72; PULSE 63–75; RESP 16–18; TEMP 97.4–98.4; O2SAT 100
[2017-09-09 05:45] LABS: AUTOMATED NEUTROPHIL # 5.5 TH/MM3 (1.8-7.7); BASOPHIL % 0.5 % (0.0-2.0); EOSINOPHIL # 0.1 TH/MM3 (0-0.4); EOSINOPHIL % 1.3 % (0.0-4.0); HEMATOCRIT 30.8 % (39.0-51.0); HEMOGLOBIN 10.4 GM/DL (13.0-17.0); LYMPH % 32.1 % (9.0-44.0); LYMPHOCYTE # 3.2 TH/MM3 (1.0-4.8); MEAN CELL VOLUME 92.6 FL (80.0-100.0); MEAN CORPUSCULAR HEMOGLOBIN 31.3 PG (27.0-34.0); MEAN CORPUSCULAR HGB CONC 33.8 % (32.0-36.0); MEAN PLATELET VOLUME 8.6 FL (7.0-11.0); MONO % 11.4 % (0.0-8.0); MONOCYTE # 1.1 TH/MM3 (0-0.9); NEUT % 54.7 % (16.0-70.0); PLATELET COUNT 244 TH/MM3 (150-450); RED BLOOD COUNT 3.33 MIL/MM3 (4.50-5.90); RED CELL DISTRIBUTION WIDTH 14.8 % (11.6-17.2)
[2017-09-09 06:02] LABS: BICARBONATE 26.2 MEQ/L (21.0-32.0); CALCIUM 9.4 MG/DL (8.5-10.1); CREATININE 5.39 MG/DL (0.60-1.30)
[2017-09-09] MEDS: PANTOPRAZOLE SODIUM 40 MG VIAL IV PUSH SCH ×2 (08:53→21:17)
[2017-09-09] MEDS: ISOSORBIDE MONONITRATE 60 MG CR TAB (IMDUR) PO SCH (08:54)
[2017-09-09] MEDS: NIFEdipine 60 MG SUSTAINED RELEASE TAB PO SCH ×2 (08:54→21:18)
[2017-09-09] MEDS: CALCITRIOL 0.25 MCG CAP PO SCH (08:54)
[2017-09-09] MEDS: RANOLAZINE 500 MG EXTENDED RELEASE TAB PO SCH ×2 (08:54→21:18)
[2017-09-09] MEDS: GELATIN 12 MM/7 MM FOAM TOP PRN (10:46)
[2017-09-09] MEDS: EPOETIN ALFA 10,000 UNITS/ML VIAL IV PUSH PRN (10:47)
--- NOTE | 2017-09-09 13:01 | HHI.GIFU ---
Subjective Remarks Pt resting in bed, back from dialysis. NO complaints. at bedside. (BrendaЮлия Darrick BRAMBILA) Objective Vitals I&O Vital Signs Date Time Temp Pulse Resp B/P (MAP) Pulse Ox O2 Delivery O2 Flow Rate FiO2 09/09/17 11:27 21 09/09/17 09:47 100 Room Air 09/09/17 08:04 97.4 63 18 156/71 (99) 100 09/09/17 08:00 67 09/09/17 08:00 64 09/09/17 04:00 Room Air 09/09/17 04:00 98.0 73 18 162/72 (102) 100 09/09/17 04:00 67 09/09/17 00:00 97.7 71 18 166/70 (102) 100 09/09/17 00:00 Room Air 09/09/17 00:00 71 09/08/17 20:33 21 09/08/17 20:00 Room Air 09/08/17 20:00 66 09/08/17 20:00 97.7 73 16 142/63 (89) 94 09/08/17 16:00 98.6 66 18 153/68 (96) 100 I/O 09/08/17 09/08/17 09/08/17 09/09/17 09/09/17 09/09/17 07:00 15:00 23:00 07:00 15:00 23:00 Intake Total 420 ml 480 ml Output Total 2000 ml Balance 420 ml 480 ml -2000 ml Intake Oral 480 ml IV Total 420 ml Output Hemodialysis 2000 ml # Voids 1 1 # Bowel Movements 1 1 Laboratory Laboratory Tests Test 09/09/17 04:40 White Blood Count 10.0 Red Blood Count 3.33 Hemoglobin 10.4 Hematocrit 30.8 Mean Corpuscular Volume 92.6 Mean Corpuscular Hemoglobin 31.3 Mean Corpuscular Hemoglobin Concent 33.8 Red Cell Distribution Width 14.8 Platelet Count 244 Mean Platelet Volume 8.6 Neutrophils (%) (Auto) 54.7 Lymphocytes (%) (Auto) 32.1 Monocytes (%) (Auto) 11.4 Eosinophils (%) (Auto) 1.3 Basophils (%) (Auto) 0.5 Neutrophils # (Auto) 5.5 Lymphocytes # (Auto) 3.2 Monocytes # (Auto) 1.1 Eosinophils # (Auto) 0.1 Basophils # (Auto) 0.0 CBC Comment DIFF FINAL Differential Comment Blood Urea Nitrogen 59 Creatinine 5.39 Random Glucose 92 Calcium Level 9.4 Sodium Level 136 Potassium Level 3.7 Chloride Level 97 Carbon Dioxide Level 26.2 Anion Gap 13 Estimat Glomerular Filtration Rate 13 Imaging Last Impressions Chest X-Ray 09/07/17 0000 Signed Impressions: Service Date/Time: Thursday, September 07, 2017 07:24 - CONCLUSION: No acute disease. Carola Lilly MD Cervical Spine CT 09/07/17 0000 Signed Impressions: Service Date/Time: Thursday, September 07, 2017 20:44 - CONCLUSION: Degenerative change as described above. Angleo Narayanan MD Barium Swallow X-Ray 09/07/17 0000 Signed Impressions: Service Date/Time: Thursday, September 07, 2017 17:45 - CONCLUSION: No obstructing or constricting abnormality identified Arnulfo Skaggs MD Physical Exam HEENT: PERRL; normocephalic; atraumatic; no jaundice. CHEST: CTA CARDIAC: RRR ABDOMEN: Soft, nondistended, nontender; no hepatosplenomegaly; bowel sounds are present in all four quadrants. EXTREMITIES: No clubbing, cyanosis, or edema. SKIN: Normal; no rash; no jaundice. RUG HOOKER HAND: alert (Юлия Gutierrez MACHINE INSTALLER) Assessment and Plan Plan - Worsening dysphagia for the past 6-7 months, but for the past 3 weeks, pt has inability to tolerate solids and has been on soft diet and insure. Reports nausea and mild abd pain. Pt states that he has lost about 30lbs in the last 6 months. He is on Omeprazole at home, EGD was yrs ago. - Hx of CAD with hx of [place] s/p cardiac stents and CABG x 5, PAD, HTN, CKD stage. per attending 09/07/17 barium swallow showed no obvious obstructing stricture 09/08/17. Patient is waiting on to get hospital but wants information discussed with her. He is waiting to signed permeant until gets to hospital so she will know plan of care. He mentioned Dr. lamar doing the procedure? Current hemoglobin is 9.1 with no obvious bleeding. Anemia probable secondary to chronic disease 09/09/17 - no EGD & dilatation today, pt has been on plavix and asa. will hold and do tomorrow. d/w pts . d/w RN. offers no GI complaints. Plan: - liquid diet - EGD/dill tomorrow - Nothing by mouth after midnight - monitor labs - Supportive care - Patient seen and examined by and myself and this note is written on his behalf (Юлия Gutierrez) Plan Patient was seen and examined, agree with above-noted, he will need to have dilation possibly tomorrow for dysphagia mostly to solids, patient stated that he is off Plavix since Saturday, he is aware of the possible risk involved with the procedure and agreeable to have it done (Chadd Méndez MD) Юлия Gutierrez Sep 09, 2017 13:01 Chadd Méndez MD Sep 09, 2017 18:59
[2017-09-09] MEDS: SODIUM CHLOR 0.9% 1000 ML INJ 1,000 ML IV SCH (15:01)
--- NOTE | 2017-09-09 15:31 | HHI.PR ---
Subjective Remarks EGD held for today as pt has been on Plavix Pt had dialysis today EGD rescheduled for tomorrow per GI notes Objective Vitals Vital Signs Date Time Temp Pulse Resp B/P (MAP) Pulse Ox O2 Delivery O2 Flow Rate FiO2 09/09/17 11:27 21 09/09/17 09:47 100 Room Air 09/09/17 08:04 97.4 63 18 156/71 (99) 100 09/09/17 08:00 67 09/09/17 08:00 64 09/09/17 04:00 Room Air 09/09/17 04:00 98.0 73 18 162/72 (102) 100 09/09/17 04:00 67 09/09/17 00:00 97.7 71 18 166/70 (102) 100 09/09/17 00:00 Room Air 09/09/17 00:00 71 09/08/17 20:33 21 09/08/17 20:00 Room Air 09/08/17 20:00 66 09/08/17 20:00 97.7 73 16 142/63 (89) 94 09/08/17 16:00 98.6 66 18 153/68 (96) 100 09/09/17 09/09/17 09/10/17 15:00 23:00 07:00 Intake Total 580 ml Output Total 2000 ml Balance -1420 ml IV Total 580 ml Output Hemodialysis 2000 ml Result Diagram: 09/09/17 0440 09/09/17 0440 Other Results Laboratory Tests Test 09/07/17 16:10 09/08/17 06:44 09/09/17 04:40 Hepatitis A IgM Antibody NONREACTIVE Hepatitis B Surface Antigen NONREACTIVE Hepatitis B Core IgM Antibody NONREACTIVE Hepatitis C IgG Antibody NONREACTIVE White Blood Count 8.5 TH/MM3 10.0 TH/MM3 Red Blood Count 2.89 MIL/MM3 3.33 MIL/MM3 Hemoglobin 9.1 GM/DL 10.4 GM/DL Hematocrit 26.8 % 30.8 % Mean Corpuscular Volume 92.9 FL 92.6 FL Mean Corpuscular Hemoglobin 31.5 PG 31.3 PG Mean Corpuscular Hemoglobin Concent 34.0 % 33.8 % Red Cell Distribution Width 14.4 % 14.8 % Platelet Count 207 TH/MM3 244 TH/MM3 Mean Platelet Volume 8.4 FL 8.6 FL Neutrophils (%) (Auto) 75.3 % 54.7 % Lymphocytes (%) (Auto) 16.5 % 32.1 % Monocytes (%) (Auto) 7.7 % 11.4 % Eosinophils (%) (Auto) 0.1 % 1.3 % Basophils (%) (Auto) 0.4 % 0.5 % Neutrophils # (Auto) 6.4 TH/MM3 5.5 TH/MM3 Lymphocytes # (Auto) 1.4 TH/MM3 3.2 TH/MM3 Monocytes # (Auto) 0.7 TH/MM3 1.1 TH/MM3 Eosinophils # (Auto) 0.0 TH/MM3 0.1 TH/MM3 Basophils # (Auto) 0.0 TH/MM3 0.0 TH/MM3 CBC Comment DIFF FINAL DIFF FINAL Differential Comment Blood Urea Nitrogen 51 MG/DL 59 MG/DL Creatinine 4.97 MG/DL 5.39 MG/DL Random Glucose 86 MG/DL 92 MG/DL Calcium Level 9.0 MG/DL 9.4 MG/DL Magnesium Level 2.2 MG/DL Sodium Level 137 MEQ/L 136 MEQ/L Potassium Level 4.1 MEQ/L 3.7 MEQ/L Chloride Level 100 MEQ/L 97 MEQ/L Carbon Dioxide Level 27.4 MEQ/L 26.2 MEQ/L Anion Gap 10 MEQ/L 13 MEQ/L Estimat Glomerular Filtration Rate 14 ML/MIN 13 ML/MIN Imaging Last Impressions Chest X-Ray 09/07/17 0000 Signed Impressions: Service Date/Time: Thursday, September 07, 2017 07:24 - CONCLUSION: No acute disease. Carola Lilly MD Cervical Spine CT 09/07/17 0000 Signed Impressions: Service Date/Time: Thursday, September 07, 2017 20:44 - CONCLUSION: Degenerative change as described above. Angelo Narayanan MD Barium Swallow X-Ray 09/07/17 0000 Signed Impressions: Service Date/Time: Thursday, September 07, 2017 17:45 - CONCLUSION: No obstructing or constricting abnormality identified Arnulfo Skaggs MD Objective Remarks General: NAD, AAOx3 Chest: CTA Cardiac: Regular Abd: +BS, soft ND/NT Ext: No edema A/P Problem List: (1) Acute on chronic kidney failure ICD Codes: N17.9 - Acute kidney failure, unspecified; N18.9 - Chronic kidney disease, unspecified Status: Acute Plan: Acute on chronic renal failure Dehydration Poor oral intake - Pt is a 76 y/o AAM with CAD with hx of [place] s/p cardiac stents and CABG x 5, PAD , HTN, CKD stage V followed by Dr. Landrum. Pt has left arm fistula placed 2014. - He presented to the ED at [facility] [place], [place] with various complaints. He states that he woke up and felt like he had increased generalized weakness and had a sensation like he might pass out. He did feel some SOB like it was hard for him to breath. He has not been eating or drinking well more recently because its been hard for him to swallow. Pt also reports that in the last week or so his UOP has decreased. He does feel occasionally dizzy when standing up. - Pts labs at admission noted a worsening of his baseline renal function with Cr 6.51, GFR 10 Pt was seen by Dr[address] Landrum for a regular visit and it was felt that he was ready to start dialysis per the pts but this has not been initiated yet. - Consulted nephrology, Dr. Landrum - Hemodialysis initiated on 09/07 - Monitor labs - Need to work on arranging outpt HD Dysphagia Weight loss - Pt has been unable to eat solid foods for the last 6-7 months. He is able to drinking fluids or Ensure slowly. - Twice he had episodes of vomiting last week after an episode of gagging on food. - Pt was seen by GI in December 2016 for complaints of dysphagia but his daughter reports that the pt was felt to be high risk for anesthesia and the pt and family decided to hold off on endoscopy at this time. He was sent for an outpt UGI and Barium swallow in December 2016 which were both negative.Pt states that he has lost about 30lbs in the last 6 months. - Protonix 40mg IV BID - GI following - Barium swallow 09/07 unremarkable for etiology of his dysphagia. - EGD with possible planned for Saturday, 09/10, Plavix and ASA being held per GI Bilateral UE weakness/spasms - Check CT Cervical spine, noncontrasted shows degenerative disc dz. CAD with hx of [place] s/p CABG and stenting Hx of chronic angina Elevated troponin HTN - Pt with noted flat troponin and no complaints of chest pain - Continue pts home cardiac meds, including Ranexa 1000mg po BID, Imdur 120mg po daily, and Nifedipine 60mg BID - Hold Losartan and HCTZ due to renal function (recently held as an outpt) PAD with hx of previous arthrectomy and stent to left SFA in 2014 - Cont. ASA and Plavix held for now for GI procedure tomorrow Hyperlipidemia - Cont. home meds Chronic anemia - Labs are stable - Monitor (2) Dysphagia ICD Codes: R13.10 - Dysphagia, unspecified Status: Chronic (3) Weight loss ICD Codes: R63.4 - Abnormal weight loss Status: Acute (4) Elevated troponin ICD Codes: R79.89 - Elevated troponin Status: Acute (5) Nausea & vomiting ICD Codes: R11.2 - Nausea & vomiting Status: Acute (6) HTN (hypertension) ICD Codes: I10 - HTN (hypertension) Status: Chronic (7) Diabetes ICD Codes: E11.9 - Diabetes Status: Chronic (8) CAD (coronary artery disease) ICD Codes: I25.10 - CAD (coronary artery disease) Status: Chronic (9) PVD (peripheral vascular disease) ICD Codes: I73.9 - PVD (peripheral vascular disease) Status: Chronic Assessment and Plan Patient examined. Assessment and plan formulated with Mary Munoz PA-C. I agree with the above. Problem Qualifiers (1) Acute on chronic kidney failure: (2) HTN (hypertension): Qualified Codes: I10 - Essential (primary) hypertension (3) Diabetes: Mary Munoz Sep 09, 2017 15:31 Soto Gardner DO Sep 13, 2017 23:08
--- NOTE | 2017-09-09 16:52 | HHI.NPPN ---
Subjective History of Present Illness 77-year-old black male with history of chronic kidney disease approaching ESRD has AV fistula, had dysphagia Additional Remarks c/o neck pain Review of Systems General Constitutional: Fatigue Musculoskeletal MS: Pain/Stiffness Objective Data Data 09/09/17 09/10/17 19:00 07:00 Intake Total 580 ml Output Total 2000 ml Balance -1420 ml IV Total 580 ml Output Hemodialysis 2000 ml Vital Signs Date Time Temp Pulse Resp B/P (MAP) Pulse Ox O2 Delivery O2 Flow Rate FiO2 09/09/17 16:10 97.5 75 18 129/58 (81) 100 09/09/17 11:27 21 09/09/17 09:47 100 Room Air 09/09/17 08:04 97.4 63 18 156/71 (99) 100 09/09/17 08:00 67 09/09/17 08:00 64 09/09/17 04:00 Room Air 09/09/17 04:00 98.0 73 18 162/72 (102) 100 09/09/17 04:00 67 09/09/17 00:00 97.7 71 18 166/70 (102) 100 09/09/17 00:00 Room Air 09/09/17 00:00 71 09/08/17 20:33 21 09/08/17 20:00 Room Air 09/08/17 20:00 66 09/08/17 20:00 97.7 73 16 142/63 (89) 94 -: 09/09/17 0440 09/09/17 0440 Physical Exam General Appearance: Well Developed, Well Nourished Neck Neck Exam: Neck Supple Pulmonary Resp Exam: Clear Bilaterally, Breath Sounds Equal Cardiology CV Exam: Regular, Normal Sinus Rhythm Gastrointestinal/Abdomen GI Exam: Soft, Non-Tender, Bowel Sounds Present Extremeties Extremities Exam: No Edema Neurologic Neuro Exam: Alert Assessment/Plan Problem List: (1) ESRD (end stage renal disease) ICD Codes: N18.6 - End stage renal disease Plan: Patient doing better he said he is eating better . Barium swallow was negative EGD Tomorrow Hemodialysis done 2 L off tolerates it well immigration case manager to set it up for out patient (2) Weight loss ICD Codes: R63.4 - Abnormal weight loss Status: Acute Plan: Patient barium swallow negative going to have endoscopy (3) Diabetes ICD Codes: E11.9 - Diabetes Status: Chronic Plan: Continue to observe (4) HTN (hypertension) ICD Codes: I10 - HTN (hypertension) Status: Chronic Plan: Patient will be monitor Problem Qualifiers (1) Diabetes: (2) HTN (hypertension): Qualified Codes: I10 - Essential (primary) hypertension Mi Landrum MD Sep 09, 2017 16:52
[2017-09-09] MEDS: ATORVASTATIN 80 MG TAB PO SCH (21:17)
[2017-09-09] MEDS: LATANOPROST 0.005% OPHT SOLN 2.5 ML BTL EACH EYE SCH (21:18)
[2017-09-10] VITALS (10 sets, daily range): BP systolic 142–161; BP diastolic 65–72; PULSE 62–77; RESP 16–18; TEMP 97.3–98.4; O2SAT 100
[2017-09-10] MEDS ORDERED: CHLORHEXIDINE GLUCONATE 2 % 1 PACK (2 CLOTHS) TOPICAL PRN (03:30)
[2017-09-10] MEDS ORDERED: SODIUM CHLORID 0.9% 500 ML IV PRN (03:30)
[2017-09-10] MEDS ORDERED: POVIDONE IODINE 5% (ANTISEPSIS KIT) 4 APPLICATIONS EACH NARE PRN (03:30)
[2017-09-10 05:34] LABS: AUTOMATED NEUTROPHIL # 6.1 TH/MM3 (1.8-7.7); BASOPHIL # 0.1 TH/MM3 (0-0.2); BASOPHIL % 0.5 % (0.0-2.0); EOSINOPHIL # 0.1 TH/MM3 (0-0.4); EOSINOPHIL % 0.9 % (0.0-4.0); HEMOGLOBIN 10.2 GM/DL (13.0-17.0); LYMPH % 29.1 % (9.0-44.0); LYMPHOCYTE # 3.1 TH/MM3 (1.0-4.8); MEAN CELL VOLUME 93.1 FL (80.0-100.0); MEAN CORPUSCULAR HEMOGLOBIN 31.6 PG (27.0-34.0); MEAN PLATELET VOLUME 8.5 FL (7.0-11.0); MONO % 12.7 % (0.0-8.0); MONOCYTE # 1.4 TH/MM3 (0-0.9); NEUT % 56.8 % (16.0-70.0); PLATELET COUNT 228 TH/MM3 (150-450); RED BLOOD COUNT 3.22 MIL/MM3 (4.50-5.90); RED CELL DISTRIBUTION WIDTH 14.7 % (11.6-17.2); WHITE BLOOD COUNT 10.7 TH/MM3 (4.0-11.0)
[2017-09-10 06:01] LABS: BICARBONATE 27.5 MEQ/L (21.0-32.0); CALCIUM 8.6 MG/DL (8.5-10.1); CREATININE 4.32 MG/DL (0.60-1.30)
[2017-09-10] MEDS: NIFEdipine 60 MG SUSTAINED RELEASE TAB PO SCH ×2 (09:00→20:13)
[2017-09-10] MEDS: RANOLAZINE 500 MG EXTENDED RELEASE TAB PO SCH ×2 (09:00→20:13)
[2017-09-10] MEDS ORDERED: LIDOCAINE HCL 1% PF 5 ML SYRINGE OTHER ONE (12:00)
[2017-09-10] MEDS ORDERED: PROPOFOL 200 MG/20 ML AMP IV ONE (12:00)
--- NOTE | 2017-09-10 12:33 | PD.PROCEDR ---
GI Procedure PROCEDURE PERFORMED EGD with biopsy, dilation of esophageal stricture INDICATION FOR PROCEDURE Dysphagia PROCEDURE: The procedure, risks and benefits were discussed with Mr. Mcmullen and informed consent was obtained. Anesthesia sedated him with Diprivan. He was placed in the left lateral decubitus position. EGD: The Pentax videoscope was introduced through the oropharynx and advanced to the second portion of the duodenum under direct visualization. Retroflexion was performed in the stomach. Biopsy from gastric ulcer, dilation of esophageal stricture with 17 mm savory guidewire ESTIMATED BLOOD LOSS: None Specimen Antrum from biopsy COMPLICATIONS: None IMPRESSION: Distal esophageal stricture status post dilation with savory guidewire size 17 mm Gastritis with small ulcer in the antrum biopsy was done Significant duodenitis PLAN: Follow-up biopsy Continue PPI Chew food well No NSAIDs Diabetic diet Okay to discharge home from GI Chadd Méndez MD Sep 10, 2017 12:33
--- NOTE | 2017-09-10 12:35 | HHI.GIFU ---
Subjective Remarks Patient laying in bed comfortably, no new complain, of Plavix for 4 days Objective Vitals I&O Vital Signs Date Time Temp Pulse Resp B/P (MAP) Pulse Ox O2 Delivery O2 Flow Rate FiO2 09/10/17 08:09 97.7 65 16 156/68 (97) 100 09/10/17 08:00 66 09/10/17 04:25 98.2 66 16 142/65 (90) 100 09/10/17 04:00 62 09/10/17 00:42 98.4 70 16 143/66 (91) 100 09/10/17 00:00 72 09/09/17 21:34 21 09/09/17 21:15 100 Room Air 09/09/17 20:50 98.4 70 16 164/70 (101) 100 09/09/17 20:00 69 09/09/17 16:10 97.5 75 18 129/58 (81) 100 09/09/17 16:00 66 I/O 09/09/17 09/09/17 09/09/17 09/10/17 09/10/17 09/10/17 07:00 15:00 23:00 07:00 15:00 23:00 Intake Total 580 ml 360 ml 0 ml Output Total 2000 ml 0 ml Balance -1420 ml 360 ml 0 ml Intake Oral 360 ml 0 ml IV Total 580 ml Output Urine Total 0 ml Hemodialysis 2000 ml # Voids 1 # Bowel Movements 0 Laboratory Laboratory Tests Test 09/10/17 04:30 White Blood Count 10.7 Red Blood Count 3.22 Hemoglobin 10.2 Hematocrit 30.0 Mean Corpuscular Volume 93.1 Mean Corpuscular Hemoglobin 31.6 Mean Corpuscular Hemoglobin Concent 34.0 Red Cell Distribution Width 14.7 Platelet Count 228 Mean Platelet Volume 8.5 Neutrophils (%) (Auto) 56.8 Lymphocytes (%) (Auto) 29.1 Monocytes (%) (Auto) 12.7 Eosinophils (%) (Auto) 0.9 Basophils (%) (Auto) 0.5 Neutrophils # (Auto) 6.1 Lymphocytes # (Auto) 3.1 Monocytes # (Auto) 1.4 Eosinophils # (Auto) 0.1 Basophils # (Auto) 0.1 CBC Comment DIFF FINAL Differential Comment Blood Urea Nitrogen 35 Creatinine 4.32 Random Glucose 91 Calcium Level 8.6 Magnesium Level 2.0 Sodium Level 136 Potassium Level 3.5 Chloride Level 101 Carbon Dioxide Level 27.5 Anion Gap 8 Estimat Glomerular Filtration Rate 16 Physical Exam HEENT: PERRL; normocephalic; atraumatic; no jaundice. CHEST: CTA CARDIAC: RRR ABDOMEN: Soft, nondistended, nontender; no hepatosplenomegaly; bowel sounds are present in all four quadrants. EXTREMITIES: No clubbing, cyanosis, or edema. SKIN: Normal; no rash; no jaundice. [employer]DS: alert oriented no acute distress Psychologically appropriate Assessment and Plan Plan Patient was seen and examined, patient is doing well, had upper endoscopy today IMPRESSION: Distal esophageal stricture status post dilation with savory guidewire size 17 mm Gastritis with small ulcer in the antrum biopsy was done Significant duodenitis PLAN: Follow-up biopsy Continue PPI Chew food well No NSAIDs Diabetic diet Okay to discharge home from Chadd Méndez MD Sep 10, 2017 12:35
[2017-09-10] MEDS: PANTOPRAZOLE SODIUM 40 MG VIAL IV PUSH SCH (14:12)
[2017-09-10] MEDS: ISOSORBIDE MONONITRATE 60 MG CR TAB (IMDUR) PO SCH (14:13)
[2017-09-10] MEDS: CALCITRIOL 0.25 MCG CAP PO SCH (14:13)
--- NOTE | 2017-09-10 14:24 | HHI.PR ---
Subjective Remarks Pt had EGD today and had dilation performed He reports that he is eating and drinking better today No new complaints Afebrile Objective Vitals Vital Signs Date Time Temp Pulse Resp B/P (MAP) Pulse Ox O2 Delivery O2 Flow Rate FiO2 09/10/17 12:45 96.9 64 18 123/59 (80) 99 09/10/17 08:09 97.7 65 16 156/68 (97) 100 09/10/17 08:00 66 09/10/17 04:25 98.2 66 16 142/65 (90) 100 09/10/17 04:00 62 09/10/17 00:42 98.4 70 16 143/66 (91) 100 09/10/17 00:00 72 09/09/17 21:34 21 09/09/17 21:15 100 Room Air 09/09/17 20:50 98.4 70 16 164/70 (101) 100 09/09/17 20:00 69 09/09/17 16:10 97.5 75 18 129/58 (81) 100 09/09/17 16:00 66 09/10/17 09/10/17 09/11/17 15:00 23:00 07:00 Intake Total 100 ml Balance 100 ml Other 100 ml Result Diagram: 09/10/17 0430 09/10/17 0430 Other Results Laboratory Tests Test 09/09/17 04:40 09/10/17 04:30 White Blood Count 10.0 TH/MM3 10.7 TH/MM3 Red Blood Count 3.33 MIL/MM3 3.22 MIL/MM3 Hemoglobin 10.4 GM/DL 10.2 GM/DL Hematocrit 30.8 % 30.0 % Mean Corpuscular Volume 92.6 FL 93.1 FL Mean Corpuscular Hemoglobin 31.3 PG 31.6 PG Mean Corpuscular Hemoglobin Concent 33.8 % 34.0 % Red Cell Distribution Width 14.8 % 14.7 % Platelet Count 244 TH/MM3 228 TH/MM3 Mean Platelet Volume 8.6 FL 8.5 FL Neutrophils (%) (Auto) 54.7 % 56.8 % Lymphocytes (%) (Auto) 32.1 % 29.1 % Monocytes (%) (Auto) 11.4 % 12.7 % Eosinophils (%) (Auto) 1.3 % 0.9 % Basophils (%) (Auto) 0.5 % 0.5 % Neutrophils # (Auto) 5.5 TH/MM3 6.1 TH/MM3 Lymphocytes # (Auto) 3.2 TH/MM3 3.1 TH/MM3 Monocytes # (Auto) 1.1 TH/MM3 1.4 TH/MM3 Eosinophils # (Auto) 0.1 TH/MM3 0.1 TH/MM3 Basophils # (Auto) 0.0 TH/MM3 0.1 TH/MM3 CBC Comment DIFF FINAL DIFF FINAL Differential Comment Blood Urea Nitrogen 59 MG/DL 35 MG/DL Creatinine 5.39 MG/DL 4.32 MG/DL Random Glucose 92 MG/DL 91 MG/DL Calcium Level 9.4 MG/DL 8.6 MG/DL Sodium Level 136 MEQ/L 136 MEQ/L Potassium Level 3.7 MEQ/L 3.5 MEQ/L Chloride Level 97 MEQ/L 101 MEQ/L Carbon Dioxide Level 26.2 MEQ/L 27.5 MEQ/L Anion Gap 13 MEQ/L 8 MEQ/L Estimat Glomerular Filtration Rate 13 ML/MIN 16 ML/MIN Magnesium Level 2.0 MG/DL Imaging Last Impressions Chest X-Ray 09/07/17 0000 Signed Impressions: Service Date/Time: Thursday, September 07, 2017 07:24 - CONCLUSION: No acute disease. Carola Lilly MD Cervical Spine CT 09/07/17 0000 Signed Impressions: Service Date/Time: Thursday, September 07, 2017 20:44 - CONCLUSION: Degenerative change as described above. Angelo Narayanan MD Barium Swallow X-Ray 09/07/17 0000 Signed Impressions: Service Date/Time: Thursday, September 07, 2017 17:45 - CONCLUSION: No obstructing or constricting abnormality identified Arnulfo Skaggs MD Objective Remarks General: NAD, AAOx3 Chest: CTA Cardiac: Regular Abd: +BS, soft ND/NT Ext: No edema A/P Problem List: (1) Acute on chronic kidney failure ICD Codes: N17.9 - Acute kidney failure, unspecified; N18.9 - Chronic kidney disease, unspecified Status: Acute Plan: Acute on chronic renal failure Dehydration Poor oral intake - Pt is a 76 y/o AAM with CAD with hx of [place] s/p cardiac stents and CABG x 5, PAD , HTN, CKD stage V followed by Dr. Landrum. Pt has left arm fistula placed 2014. - He presented to the ED at [facility] [place] with various complaints. He states that he woke up and felt like he had increased generalized weakness and had a sensation like he might pass out. He did feel some SOB like it was hard for him to breath. He has not been eating or drinking well more recently because its been hard for him to swallow. Pt also reports that in the last week or so his UOP has decreased. He does feel occasionally dizzy when standing up. - Pts labs at admission noted a worsening of his baseline renal function with Cr 6.51, GFR 10 Pt was seen by Dr[address] Landrum for a regular visit and it was felt that he was ready to start dialysis per the pts but this has not been initiated yet. - Consulted nephrology, Dr. Landrum - Hemodialysis initiated on 09/07 - Monitor labs - Need to work on arranging outpt HD Dysphagia Weight loss - Pt has been unable to eat solid foods for the last 6-7 months. He is able to drinking fluids or Ensure slowly. - Twice he had episodes of vomiting last week after an episode of gagging on food. - Pt was seen by GI in December 2016 for complaints of dysphagia but his daughter reports that the pt was felt to be high risk for anesthesia and the pt and family decided to hold off on endoscopy at this time. He was sent for an outpt UGI and Barium swallow in December 2016 which were both negative.Pt states that he has lost about 30lbs in the last 6 months. - Protonix 40mg IV BID - GI following - Barium swallow 09/07 unremarkable for etiology of his dysphagia. - Pt underwent EGD with dilation (09/10/17) --> Distal esophageal stricture status post dilation with savory guidewire size 17 mm, gastritis with small ulcer in the antrum, and significant duodenitis - Pt was cleared from a GI stand point for discharge. - Cont. PPI, convert to PO 40mg BID Bilateral UE weakness/spasms - CT Cervical spine, noncontrasted shows degenerative disc dz. CAD with hx of [place] s/p CABG and stenting Hx of chronic angina Elevated troponin HTN - Pt with noted flat troponin and no complaints of chest pain - Continue pts home cardiac meds, including Ranexa 1000mg po BID, Imdur 120mg po daily, and Nifedipine 60mg BID - Hold Losartan and HCTZ due to renal function (recently held as an outpt) PAD with hx of previous arthrectomy and stent to left SFA in 2014 - Cont. ASA and Plavix held for now for GI procedure which was today. Hyperlipidemia - Cont. home meds Chronic anemia - Labs are stable - Monitor (2) Dysphagia ICD Codes: R13.10 - Dysphagia, unspecified Status: Chronic (3) Weight loss ICD Codes: R63.4 - Abnormal weight loss Status: Acute (4) Elevated troponin ICD Codes: R79.89 - Elevated troponin Status: Acute (5) Nausea & vomiting ICD Codes: R11.2 - Nausea & vomiting Status: Acute (6) HTN (hypertension) ICD Codes: I10 - HTN (hypertension) Status: Chronic (7) Diabetes ICD Codes: E11.9 - Diabetes Status: Chronic (8) CAD (coronary artery disease) ICD Codes: I25.10 - CAD (coronary artery disease) Status: Chronic (9) PVD (peripheral vascular disease) ICD Codes: I73.9 - PVD (peripheral vascular disease) Status: Chronic Assessment and Plan Patient examined. Assessment and plan formulated with Mary Munoz PA-C. I agree with the above. Problem Qualifiers (1) Acute on chronic kidney failure: (2) HTN (hypertension): Qualified Codes: I10 - Essential (primary) hypertension (3) Diabetes: Mary Munoz Sep 10, 2017 14:24 Soto Gardner DO Sep 13, 2017 23:09
[2017-09-10] MEDS: SODIUM CHLOR 0.9% 1000 ML INJ 1,000 ML IV SCH (14:28)
--- NOTE | 2017-09-10 14:48 | HHI.NPPN ---
Subjective History of Present Illness 77-year-old black male with history of chronic kidney disease approaching ESRD has AV fistula, had dysphagia Additional Remarks Doing better post endoscopy Review of Systems General Constitutional: Fatigue Musculoskeletal MS: Pain/Stiffness Objective Data Data 09/10/17 09/11/17 19:00 07:00 Intake Total 100 ml Balance 100 ml Other 100 ml Vital Signs Date Time Temp Pulse Resp B/P (MAP) Pulse Ox O2 Delivery O2 Flow Rate FiO2 09/10/17 12:45 96.9 64 18 123/59 (80) 99 09/10/17 12:09 97.6 71 17 146/67 (93) 100 09/10/17 08:09 97.7 65 16 156/68 (97) 100 09/10/17 08:00 66 09/10/17 04:25 98.2 66 16 142/65 (90) 100 09/10/17 04:00 62 09/10/17 00:42 98.4 70 16 143/66 (91) 100 09/10/17 00:00 72 09/09/17 21:34 21 09/09/17 21:15 100 Room Air 09/09/17 20:50 98.4 70 16 164/70 (101) 100 09/09/17 20:00 69 09/09/17 16:10 97.5 75 18 129/58 (81) 100 09/09/17 16:00 66 -: 09/10/17 0430 09/10/17 0430 Physical Exam General Appearance: Well Developed, Well Nourished Neck Neck Exam: Neck Supple Pulmonary Resp Exam: Clear Bilaterally, Breath Sounds Equal Cardiology CV Exam: Regular, Normal Sinus Rhythm Gastrointestinal/Abdomen GI Exam: Soft, Non-Tender, Bowel Sounds Present Extremeties Extremities Exam: No Edema Neurologic Neuro Exam: Alert Assessment/Plan Problem List: (1) ESRD (end stage renal disease) ICD Codes: N18.6 - End stage renal disease Plan: Patient doing better he said he is eating better . Barium swallow was negative EGD esophageal stretching Hemodialysis next tomorrow case planner to set it up for out patient (2) Weight loss ICD Codes: R63.4 - Abnormal weight loss Status: Acute Plan: Patient barium swallow negative going to have endoscopy (3) Diabetes ICD Codes: E11.9 - Diabetes Status: Chronic Plan: Continue to observe (4) HTN (hypertension) ICD Codes: I10 - HTN (hypertension) Status: Chronic Plan: Patient will be monitor Problem Qualifiers (1) Diabetes: (2) HTN (hypertension): Qualified Codes: I10 - Essential (primary) hypertension Mi Landrum MD Sep 10, 2017 14:48
[2017-09-10] MEDS: LATANOPROST 0.005% OPHT SOLN 2.5 ML BTL EACH EYE SCH (20:13)
[2017-09-10] MEDS: PANTOPRAZOLE SOD 40 MG DELAYED RELEASE TAB PO SCH (20:13)
[2017-09-10] MEDS: ATORVASTATIN 80 MG TAB PO SCH (20:13)
[2017-09-11] VITALS: BP 166/100; PULSE 72; RESP 20; TEMP 97.2; O2SAT 100
[2017-09-11 03:33] VITALS: BP 130/88; PULSE 73; RESP 18; TEMP 98.4; O2SAT 100
[2017-09-11 08:04] VITALS: BP 147/67; PULSE 70; RESP 17; TEMP 98.4; O2SAT 100
[2017-09-11] MEDS: NIFEdipine 60 MG SUSTAINED RELEASE TAB PO SCH (09:00)
[2017-09-11] MEDS: RANOLAZINE 500 MG EXTENDED RELEASE TAB PO SCH (09:00)
[2017-09-11] MEDS: ISOSORBIDE MONONITRATE 60 MG CR TAB (IMDUR) PO SCH ×2 (09:00→12:18)
--- NOTE | 2017-09-11 11:31 | HHI.NPPN ---
Subjective History of Present Illness 77-year-old black male with history of chronic kidney disease approaching ESRD has AV fistula, had dysphagia Additional Remarks Doing OK Review of Systems General Constitutional: Fatigue Musculoskeletal MS: Pain/Stiffness Objective Data Data Vital Signs Date Time Temp Pulse Resp B/P (MAP) Pulse Ox O2 Delivery O2 Flow Rate FiO2 09/11/17 08:04 98.4 70 17 147/67 (93) 100 09/11/17 03:33 Room Air 09/11/17 03:33 98.4 73 18 130/88 (102) 100 09/11/17 00:00 97.2 72 20 166/100 (122) 100 09/11/17 00:00 Room Air 09/10/17 20:10 97.4 71 18 146/72 (96) 100 09/10/17 20:00 Room Air 09/10/17 18:36 Room Air 09/10/17 16:09 97.3 67 17 161/68 (99) 100 09/10/17 16:00 77 09/10/17 13:30 Room Air 09/10/17 12:45 96.9 64 18 123/59 (80) 99 09/10/17 12:09 97.6 71 17 146/67 (93) 100 -: 09/10/17 0430 09/10/17 0430 Physical Exam General Appearance: Well Developed, Well Nourished Neck Neck Exam: Neck Supple Pulmonary Resp Exam: Clear Bilaterally, Breath Sounds Equal Cardiology CV Exam: Regular, Normal Sinus Rhythm Gastrointestinal/Abdomen GI Exam: Soft, Non-Tender, Bowel Sounds Present Extremeties Extremities Exam: No Edema Neurologic Neuro Exam: Alert Assessment/Plan Problem List: (1) ESRD (end stage renal disease) ICD Codes: N18.6 - End stage renal disease Plan: Patient doing better he said he is eating better . Hemodialysis PROGRESS NOTED Await placement case manager specialist to set it up for out patient (2) Weight loss ICD Codes: R63.4 - Abnormal weight loss Status: Acute Plan: Patient barium swallow negative going to have endoscopy (3) Diabetes ICD Codes: E11.9 - Diabetes Status: Chronic Plan: Continue to observe (4) HTN (hypertension) ICD Codes: I10 - HTN (hypertension) Status: Chronic Plan: Patient will be monitor Problem Qualifiers (1) Diabetes: (2) HTN (hypertension): Qualified Codes: I10 - Essential (primary) hypertension Mi Landrum MD Sep 11, 2017 11:31
[2017-09-11] MEDS: PANTOPRAZOLE SOD 40 MG DELAYED RELEASE TAB PO SCH (12:17)
[2017-09-11] MEDS: CALCITRIOL 0.25 MCG CAP PO SCH (12:17)
--- NOTE | 2017-09-11 12:23 | HHI.PR ---
Subjective Remarks No new complaints. Objective Vitals Vital Signs Date Time Temp Pulse Resp B/P (MAP) Pulse Ox O2 Delivery O2 Flow Rate FiO2 09/11/17 08:30 Room Air 09/11/17 08:04 98.4 70 17 147/67 (93) 100 09/11/17 03:33 Room Air 09/11/17 03:33 98.4 73 18 130/88 (102) 100 09/11/17 00:00 97.2 72 20 166/100 (122) 100 09/11/17 00:00 Room Air 09/10/17 20:10 97.4 71 18 146/72 (96) 100 09/10/17 20:00 Room Air 09/10/17 18:36 Room Air 09/10/17 16:09 97.3 67 17 161/68 (99) 100 09/10/17 16:00 77 09/10/17 13:30 Room Air 09/10/17 12:45 96.9 64 18 123/59 (80) 99 09/11/17 09/11/17 09/12/17 15:00 23:00 07:00 Output Total 2000 ml Balance -2000 ml Hemodialysis 2000 ml Result Diagram: 09/10/17 0430 09/10/17 0430 Imaging Last Impressions Chest X-Ray 09/07/17 0000 Signed Impressions: Service Date/Time: Thursday, September 07, 2017 07:24 - CONCLUSION: No acute disease. Carola Lilly MD Cervical Spine CT 09/07/17 0000 Signed Impressions: Service Date/Time: Thursday, September 07, 2017 20:44 - CONCLUSION: Degenerative change as described above. Angelo Narayanan MD Barium Swallow X-Ray 09/07/17 0000 Signed Impressions: Service Date/Time: Thursday, September 07, 2017 17:45 - CONCLUSION: No obstructing or constricting abnormality identified Arnulfo Skaggs MD Objective Remarks General: NAD, AAOx3 Chest: CTA Cardiac: Regular Abd: +BS, soft ND/NT Ext: No edema A/P Problem List: (1) Acute on chronic kidney failure ICD Codes: N17.9 - Acute kidney failure, unspecified; N18.9 - Chronic kidney disease, unspecified Status: Acute Plan: Acute on chronic renal failure Dehydration Poor oral intake - Pt is a 76 y/o AAM with CAD with hx of [place] s/p cardiac stents and CABG x 5, PAD , HTN, CKD stage V followed by Dr. Landrum. Pt has left arm fistula placed 2014. - He presented to the ED at [facility] [place] [place] with various complaints. He states that he woke up and felt like he had increased generalized weakness and had a sensation like he might pass out. He did feel some SOB like it was hard for him to breath. He has not been eating or drinking well more recently because its been hard for him to swallow. Pt also reports that in the last week or so his UOP has decreased. He does feel occasionally dizzy when standing up. - Pts labs at admission noted a worsening of his baseline renal function with Cr 6.51, GFR 10 Pt was seen by Dr[address] Landrum for a regular visit and it was felt that he was ready to start dialysis per the pts but this has not been initiated yet. - Consulted nephrology, Dr. Landrum - Hemodialysis initiated on 09/07 - Monitor labs - Need to work on arranging outpt HD Dysphagia Weight loss - Pt has been unable to eat solid foods for the last 6-7 months. He is able to drinking fluids or Ensure slowly. - Twice he had episodes of vomiting last week after an episode of gagging on food. - Pt was seen by GI in December 2016 for complaints of dysphagia but his daughter reports that the pt was felt to be high risk for anesthesia and the pt and family decided to hold off on endoscopy at this time. He was sent for an outpt UGI and Barium swallow in December 2016 which were both negative.Pt states that he has lost about 30lbs in the last 6 months. - Protonix 40mg IV BID - GI following - Barium swallow 09/07 unremarkable for etiology of his dysphagia. - Pt underwent EGD with dilation (09/10/17) --> Distal esophageal stricture status post dilation with savory guidewire size 17 mm, gastritis with small ulcer in the antrum, and significant duodenitis - Pt was cleared from a GI stand point for discharge. - Cont. PPI, convert to PO 40mg BID Bilateral UE weakness/spasms - CT Cervical spine, noncontrasted shows degenerative disc dz. CAD with hx of [place] s/p CABG and stenting Hx of chronic angina Elevated troponin HTN - Pt with noted flat troponin and no complaints of chest pain - Continue pts home cardiac meds, including Ranexa 1000mg po BID, Imdur 120mg po daily, and Nifedipine 60mg BID - Hold Losartan and HCTZ due to renal function (recently held as an outpt) PAD with hx of previous arthrectomy and stent to left SFA in 2013 - Cont. ASA and Plavix held for now for GI procedure which was today. Hyperlipidemia - Cont. home meds Chronic anemia - Labs are stable - Monitor (2) Dysphagia ICD Codes: R13.10 - Dysphagia, unspecified Status: Chronic (3) Weight loss ICD Codes: R63.4 - Abnormal weight loss Status: Acute (4) Elevated troponin ICD Codes: R79.89 - Elevated troponin Status: Acute (5) Nausea & vomiting ICD Codes: R11.2 - Nausea & vomiting Status: Acute (6) HTN (hypertension) ICD Codes: I10 - HTN (hypertension) Status: Chronic (7) Diabetes ICD Codes: E11.9 - Diabetes Status: Chronic (8) CAD (coronary artery disease) ICD Codes: I25.10 - CAD (coronary artery disease) Status: Chronic (9) PVD (peripheral vascular disease) ICD Codes: I73.9 - PVD (peripheral vascular disease) Status: Chronic Problem Qualifiers (1) Acute on chronic kidney failure: (2) HTN (hypertension): Qualified Codes: I10 - Essential (primary) hypertension (3) Diabetes: Soto Gardner DO Sep 11, 2017 12:23
--- NOTE | 2017-09-11 12:26 | HHI.GIFU ---
Subjective Remarks Pt sitting up in bed, family at bedside. Just back from HD. (Юлия Gutierrez) Objective Vitals I&O Vital Signs Date Time Temp Pulse Resp B/P (MAP) Pulse Ox O2 Delivery O2 Flow Rate FiO2 09/11/17 08:30 Room Air 09/11/17 08:04 98.4 70 17 147/67 (93) 100 09/11/17 03:33 Room Air 09/11/17 03:33 98.4 73 18 130/88 (102) 100 09/11/17 00:00 97.2 72 20 166/100 (122) 100 09/11/17 00:00 Room Air 09/10/17 20:10 97.4 71 18 146/72 (96) 100 09/10/17 20:00 Room Air 09/10/17 18:36 Room Air 09/10/17 16:09 97.3 67 17 161/68 (99) 100 09/10/17 16:00 77 09/10/17 13:30 Room Air 09/10/17 12:45 96.9 64 18 123/59 (80) 99 I/O 09/10/17 09/10/17 09/10/17 09/11/17 09/11/17 09/11/17 07:00 15:00 23:00 07:00 15:00 23:00 Intake Total 0 ml 100 ml 480 ml 240 ml Output Total 0 ml 1 ml 2000 ml Balance 0 ml 100 ml 479 ml 240 ml -2000 ml Intake Oral 0 ml 480 ml 240 ml Other 100 ml Output Urine Total 0 ml 1 ml Hemodialysis 2000 ml # Voids 1 # Bowel Movements 0 0 0 Laboratory Laboratory Tests Test 09/07/17 07:29 09/07/17 14:53 09/07/17 15:20 09/07/17 16:10 Blood Urea Nitrogen 74 MG/DL Creatinine 6.51 MG/DL Random Glucose 106 MG/DL Total Protein 7.8 GM/DL Albumin 3.6 GM/DL Calcium Level 9.4 MG/DL Alkaline Phosphatase 92 U/L Aspartate Amino Transf (AST/SGOT) 17 U/L Alanine Aminotransferase (ALT/SGPT) 18 U/L Total Bilirubin 0.4 MG/DL Sodium Level 133 MEQ/L Potassium Level 5.1 MEQ/L Chloride Level 99 MEQ/L Carbon Dioxide Level 25.6 MEQ/L Troponin I 1.42 NG/ML Urine Color YELLOW Urine Turbidity CLEAR Urine pH 7.0 Urine Specific [place] 1.013 Urine Protein 100 mg/dL Urine Glucose (UA) NEG mg/dL Urine Ketones NEG mg/dL Urine Occult Blood NEG Urine Nitrite NEG Urine Bilirubin NEG Urine Urobilinogen LESS THAN 2.0 MG/DL Urine Leukocyte Esterase NEG Urine RBC LESS THAN 1 /hpf Urine WBC LESS THAN 1 /hpf Urine Squamous Epithelial Cells 1 /hpf Urine Mucus FEW /lpf Microscopic Urinalysis Comment CULT NOT INDICATED Hepatitis A IgM Antibody NONREACTIVE Hepatitis B Surface Antigen NONREACTIVE Hepatitis B Core IgM Antibody NONREACTIVE Hepatitis C IgG Antibody NONREACTIVE Test 09/10/17 04:30 White Blood Count 10.7 TH/MM3 Red Blood Count 3.22 MIL/MM3 Hemoglobin 10.2 GM/DL Hematocrit 30.0 % Mean Corpuscular Volume 93.1 FL Mean Corpuscular Hemoglobin 31.6 PG Mean Corpuscular Hemoglobin Concent 34.0 % Red Cell Distribution Width 14.7 % Platelet Count 228 TH/MM3 Mean Platelet Volume 8.5 FL Neutrophils (%) (Auto) 56.8 % Lymphocytes (%) (Auto) 29.1 % Monocytes (%) (Auto) 12.7 % Eosinophils (%) (Auto) 0.9 % Basophils (%) (Auto) 0.5 % Neutrophils # (Auto) 6.1 TH/MM3 Lymphocytes # (Auto) 3.1 TH/MM3 Monocytes # (Auto) 1.4 TH/MM3 Eosinophils # (Auto) 0.1 TH/MM3 Basophils # (Auto) 0.1 TH/MM3 CBC Comment DIFF FINAL Differential Comment Blood Urea Nitrogen 35 MG/DL Creatinine 4.32 MG/DL Random Glucose 91 MG/DL Calcium Level 8.6 MG/DL Magnesium Level 2.0 MG/DL Sodium Level 136 MEQ/L Potassium Level 3.5 MEQ/L Chloride Level 101 MEQ/L Carbon Dioxide Level 27.5 MEQ/L Anion Gap 8 MEQ/L Estimat Glomerular Filtration Rate 16 ML/MIN Imaging Last Impressions Chest X-Ray 09/07/17 0000 Signed Impressions: Service Date/Time: Thursday, September 07, 2017 07:24 - CONCLUSION: No acute disease. Carola Lilly MD Cervical Spine CT 09/07/17 0000 Signed Impressions: Service Date/Time: Thursday, September 07, 2017 20:44 - CONCLUSION: Degenerative change as described above. Angelo Narayanan MD Barium Swallow X-Ray 09/07/17 0000 Signed Impressions: Service Date/Time: Thursday, September 07, 2017 17:45 - CONCLUSION: No obstructing or constricting abnormality identified Arnulfo Skaggs MD Physical Exam HEENT: PERRL; normocephalic; atraumatic; no jaundice. CHEST: CTA CARDIAC: RRR ABDOMEN: Soft, nondistended, nontender; no hepatosplenomegaly; bowel sounds are present in all four quadrants. EXTREMITIES: No clubbing, cyanosis, or edema. SKIN: Normal; no rash; no jaundice. COPYRIGHT EXPERT: alert oriented (Юлия Gutierrez FINANCIAL REPORTING CONSULTANT) Assessment and Plan Plan - Worsening dysphagia for the past 6-7 months, but for the past 3 weeks, pt has inability to tolerate solids and has been on soft diet and insure. Reports nausea and mild abd pain. Pt states that he has lost about 30lbs in the last 6 months. He is on Omeprazole at home, EGD was yrs ago. - Hx of CAD with hx of [place] s/p cardiac stents and CABG x 5, PAD, HTN, CKD stage. per attending 09/07/17 barium swallow showed no obvious obstructing stricture 09/08/17. Patient is waiting on to get hospital but wants information discussed with her. He is waiting to signed permeant until gets to hospital so she will know plan of care. He mentioned Dr. lamar doing the procedure? Current hemoglobin is 9.1 with no obvious bleeding. Anemia probable secondary to chronic disease 09/09/17 - no EGD & dilatation today, pt has been on plavix and asa. will hold and do tomorrow. d/w pts . d/w RN. offers no GI complaints. 09/10/17 - Patient was seen and examined, patient is doing well, had upper endoscopy today IMPRESSION: Distal esophageal stricture status post dilation with savory guidewire size 17 mm Gastritis with small ulcer in the antrum biopsy was done,Significant duodenitis 09/11/17 doing well, swallowing is better. bx pending PLAN: await biopsy Continue PPI Chew food well No NSAIDs Diabetic diet f/u with GI after d/c ok to d/c pt from GI standpoint pt seen by myself and Dr Méndez and this note is on his behalf (Юлия Gutierrez) Plan Patient was seen and examined, agree with above-noted, he is doing well and eating food well, no sign of bleeding, patient can restart on anticoagulation tomorrow please use the lowest possible dose and monitor for bleeding, we will follow up as needed (Chadd Méndez MD) Юлия Gutierrez Sep 11, 2017 12:26 Chadd Méndez MD Sep 11, 2017 13:17
[2017-09-11] MEDS ORDERED: DOCUSATE SODIUM 100 MG CAP PO SCH (12:30)
[2017-09-11] MEDS ORDERED: BISACODYL 10 MG SUPP RECTAL ONE (12:30)
[2017-09-11 16:04] VITALS: BP 154/69; PULSE 67; RESP 18; TEMP 97.7; O2SAT 100
--- NOTE | 2017-09-11 16:52 | HHI.DCPOC ---
Discharge Care Plan Diagnosis: (1) ESRD (end stage renal disease) (2) Dysphagia (3) CAD (coronary artery disease) Goals to Promote Your Health * To prevent worsening of your condition and complications * To maintain your health at the optimal level Directions to Meet Your Goals Take your medications as prescribed Follow your dietary instruction Follow activity as directed Keep your appointments as scheduled Take your immunizations and boosters as scheduled If your symptoms worsen call your PCP, if no PCP go to Urgent Care Center or Emergency Room Smoking is Dangerous to Your Health. Avoid second hand smoke Call the 24-hour hour crisis hotline for domestic abuse at [facility] Sep 11, 2017 16:52 Soto Gardner DO Sep 13, 2017 23:12
[2017-09-11] MEDS ORDERED: PANT40TA3 PO (16:58)
--- NOTE | 2017-09-11 17:02 | HHI.DS ---
Discharge Summary Admission Date Sep 07, 2017 at 09:20 Discharge Date: Sep 11, 2017 Admitting Diagnosis Acute on chronic renal failure, dysphagia (1) Acute on chronic kidney failure Diagnosis: Principal ICD Codes: N17.9 - Acute kidney failure, unspecified; N18.9 - Chronic kidney disease, unspecified Status: Acute (2) Dysphagia Diagnosis: Principal ICD Codes: R13.10 - Dysphagia, unspecified Status: Chronic (3) Weight loss Diagnosis: Principal ICD Codes: R63.4 - Abnormal weight loss Status: Acute (4) HTN (hypertension) Diagnosis: Secondary ICD Codes: I10 - HTN (hypertension) Status: Chronic (5) Diabetes Diagnosis: Secondary ICD Codes: E11.9 - Diabetes Status: Chronic (6) CAD (coronary artery disease) Diagnosis: Secondary ICD Codes: I25.10 - CAD (coronary artery disease) Status: Chronic (7) PVD (peripheral vascular disease) Diagnosis: Secondary ICD Codes: I73.9 - PVD (peripheral vascular disease) Status: Chronic Consultants Dr. Landrum, Nephrology Dr. Faith, GI Procedures EGD with dilation (09/10/17) --> Distal esophageal stricture status post dilation with savory guidewire size 17 mm, gastritis with small ulcer in the antrum, and significant duodenitis Brief History Mr. Mcmullen is a pleasant 76 y/o AAM with CAD with hx of [place] s/p cardiac stents and CABG x 5, PAD, HTN, CKD stage V followed by Dr. Landrum. Pt has left arm fistula placed 2014. Pt presented to the ED at [facility] [place] with various complaints. He states that he woke up this morning and felt like he had increased generalized weakness and had a sensation like he might pass out. Denies any chest pain. He did feel some SOB like it was hard for him to breath. He has not been eating or drinking well more recently because its been hard for him to swallow. It sounds like this dysphagia has been an issue for some time but has worsened in the last 6-7 months according to the pts . He has been eating pudding and some soup but unable to eat anything more solid. If he does eat anything more solid he feels like it makes him gag and gets nauseated. Twice he had episodes of vomiting last week after an episode of gagging on food. He did not cough or choke when the vomiting occurred. He is able to drinking fluids or Ensure slowly. If he tries to drink any fluids fast it makes him nauseated and gag. Pt was seen by GI in December 2016 for complaints of dysphagia but his daughter reports that the pt was felt to be high risk for anesthesia and the pt and family decided to hold off on endoscopy at this time. He was sent for an outpt UGI and Barium swallow in December 2016 which were both negative. Pt was started on Omeprazole at that time. Pt states that he has lost about 30lbs in the last 6 months. Pt also reports that in the last week or so his UOP has decreased. He does feel occasionally dizzy when standing up. Pt was seen by Dr. Landrum yesterday for a regular visit and it was felt that he was ready to start dialysis per the pts but this has not been initiated yet. He also complains about weakness in his upper extremities and occasional spasms in his arms/hands that occur randomly. He states that it is hard for him to pick things up occasionally because of the weakness in his hands. He denies any LE weakness. CBC/BMP: 09/10/17 0430 09/10/17 0430 Significant Findings Laboratory Tests Test 09/09/17 04:40 09/10/17 04:30 Red Blood Count 3.33 MIL/MM3 (4.50-5.90) 3.22 MIL/MM3 (4.50-5.90) Hemoglobin 10.4 GM/DL (13.0-17.0) 10.2 GM/DL (13.0-17.0) Hematocrit 30.8 % (39.0-51.0) 30.0 % (39.0-51.0) Monocytes (%) (Auto) 11.4 % (0.0-8.0) 12.7 % (0.0-8.0) Monocytes # (Auto) 1.1 TH/MM3 (0-0.9) 1.4 TH/MM3 (0-0.9) Blood Urea Nitrogen 59 MG/DL (7-18) 35 MG/DL (7-18) Creatinine 5.39 MG/DL (0.60-1.30) 4.32 MG/DL (0.60-1.30) Chloride Level 97 MEQ/L (98-107) Estimat Glomerular Filtration Rate 13 ML/MIN (>89) 16 ML/MIN (>89) Imaging Last Impressions Chest X-Ray 09/07/17 0000 Signed Impressions: Service Date/Time: Thursday, September 07, 2017 07:24 - CONCLUSION: No acute disease. Carola Lilly MD Cervical Spine CT 09/07/17 0000 Signed Impressions: Service Date/Time: Thursday, September 07, 2017 20:44 - CONCLUSION: Degenerative change as described above. Angelo Narayanan MD Barium Swallow X-Ray 09/07/17 0000 Signed Impressions: Service Date/Time: Thursday, September 07, 2017 17:45 - CONCLUSION: No obstructing or constricting abnormality identified Arnulfo Skaggs MD PE at Discharge General: NAD, AAOx3 Chest: CTA Cardiac: Regular Abd: +BS, soft ND/NT Ext: No edema Hospital Course Acute on chronic renal failure Dehydration Poor oral intake - Pt is a 76 y/o AAM with CAD with hx of [place] s/p cardiac stents and CABG x 5, PAD , HTN, CKD stage V followed by Dr. Landrum. Pt has left arm fistula placed 2014. - He presented to the ED at [facility] [place] with various complaints. He states that he woke up and felt like he had increased generalized weakness and had a sensation like he might pass out. He did feel some SOB like it was hard for him to breath. He has not been eating or drinking well more recently because its been hard for him to swallow. Pt also reports that in the last week or so his UOP has decreased. He does feel occasionally dizzy when standing up. - Pts labs at admission noted a worsening of his baseline renal function with Cr 6.51, GFR [address] Landrum for a regular visit and it was felt that he was ready to start dialysis per the pts but this has not been initiated yet. - Consulted nephrology, Dr. Landrum - Hemodialysis initiated on 09/07 - Monitor labs - outpt HD arranged Dysphagia Weight loss - Pt has been unable to eat solid foods for the last 6-7 months. He is able to drinking fluids or Ensure slowly. - Twice he had episodes of vomiting last week after an episode of gagging on food. - Pt was seen by GI in December 2016 for complaints of dysphagia but his daughter reports that the pt was felt to be high risk for anesthesia and the pt and family decided to hold off on endoscopy at this time. He was sent for an outpt UGI and Barium swallow in December 2016 which were both negative.Pt states that he has lost about 30lbs in the last 6 months. - Protonix 40mg IV BID - GI following - Barium swallow 09/07 unremarkable for etiology of his dysphagia. - Pt underwent EGD with dilation (09/10/17) --> Distal esophageal stricture status post dilation with savory guidewire size 17 mm, gastritis with small ulcer in the antrum, and significant duodenitis - Pt was cleared from a GI stand point for discharge. - Cont. PPI, convert to PO 40mg BID Bilateral UE weakness/spasms - CT Cervical spine, noncontrasted shows degenerative disc dz. CAD with hx of [place] s/p CABG and stenting Hx of chronic angina Elevated troponin HTN - Pt with noted flat troponin and no complaints of chest pain - Continue pts home cardiac meds, including Ranexa 1000mg po BID, Imdur 120mg po daily, and Nifedipine 60mg BID - Hold Losartan and HCTZ due to renal function (recently held as an outpt) PAD with hx of previous arthrectomy and stent to left SFA in 2013 - Cont. ASA and Plavix held for now for GI procedure which was today. Hyperlipidemia - Cont. home meds Chronic anemia - Labs are stable - Monitor Pt Condition on Discharge: Stable Discharge Disposition: Discharge Home Discharge Instructions DIET: Follow Instructions for: Dialysis Diet Activities you can perform: Regular-No Restrictions Follow up Referrals: Clinic - 09/12/17 with Dialysis Gastroenterology - 2 Weeks with Chadd Méndez MD Nephrology - [address] Landrum PCP Follow-up - [address] Rankin New Medications: Losartan (Losartan) 50 Mg Tab 50 MG PO DAILY for Blood Pressure Management, #30 TAB 0 Refills Pantoprazole (Pantoprazole) 40 Mg Tab 40 MG PO Q12HR for stomach, #60 TAB 0 Refills Continued Medications: Aspirin DR (Aspirin EC) 81 Mg Tabdr 81 MG PO DAILY, TAB 0 Refills Atorvastatin (Atorvastatin) 80 Mg Tab 80 MG PO HS for Cholesterol Management, #30 TAB 0 Refills Calcitriol (Calcitriol) 0.25 Mcg Cap 0.25 MCG PO DAILY for Calcium Supplement, #30 CAP 0 Refills Cholecalciferol (Vitamin D-3) 1,000 Unit Cap Clopidogrel (Plavix) 75 Mg Tab 75 MG PO DAILY for Blood Clot Prevention, #30 TAB 0 Refills Cyclobenzaprine (Flexeril) 10 Mg Tab 10 MG PO TID for Muscle Spasm for 7 Days, #21 TAB 0 Refills Isosorbide Mononitrate ER (Isosorbide Mononitrate ER) 120 Mg Rei 120 MG PO DAILY for Prevent Chest Pain, #30 TAB 0 Refills Lactulose Liq (Lactulose Liq) 10 Gm/15 Ml Soln 10 ML PO Q6H PRN for daily, ML 0 Refills Latanoprost Opth Drops (Latanoprost Opth Drops) 0.005% Drops 1 DROP EACH EYE HS for Glaucoma, #2.5 ML 0 Refills Refrigerate until opened. Nifedipine ER 24 HR (Nifedipine ER 24 HR) 60 Mg Tab 60 MG PO BID, #30 TAB 0 Refills Nitroglycerin SL (Nitrostat SL) 0.4 Mg Subl 0.4 MG SL DIRECTED PRN for CHEST PAIN, #100 TAB.SL 0 Refills 1 tablet under the tongue as needed for chest pain. Repeat every 5 minutes for a total of 3 DOSES or call 911 if NO relief. Ondansetron (Ondansetron) 4 Mg Tab MG PO PRN Ranolazine ER 12 HR (Ranexa ER 12 HR) 1,000 Mg Tab 1000 MG PO BID for Chest Pain, #60 TAB 0 Refills Tamsulosin (Flomax) 0.4 Mg Cap 0.4 MG PO HS for Manage Prostate Problems, #30 CAP 0 Refills [dorzolamide] () Discontinued Medications: Allopurinol (Allopurinol) 100 Mg Tab 100 MG PO DAILY for Gout, #30 TAB 0 Refills Guaifenesin-Codeine Liq (Virtussin A-C Liq) 100-10 Mg/5 Ml Soln 5 ML PO Q4H PRN for COUGH, #1 BOTTLE 0 Refills Hydrochlorothiazide (Hydrochlorothiazide) 25 Mg Tab 25 MG PO DAILY, #30 TAB 0 Refills Losartan (Losartan) 100 Mg Tab 100 MG PO DAILY for Blood Pressure Management, #30 TAB 0 Refills Pantoprazole (Protonix) 40 Mg Tab 40 MG PO DAILY for reduce stomach acid, #12 TAB 0 Refills Additional Information Patient examined. Assessment and plan formulated with Malu Maldonado PA-C. I agree with the above. Malu Maldonado Sep 11, 2017 17:02 Soto Gardner DO Sep 13, 2017 23:11
[2017-09-11] MEDS ORDERED: LOSA50TA PO (17:20)
== END 2017-09-11 19:14 | disposition home or self-care (01) | DRG 682 ==
LOC: NEPE 06:22 → NEDA 09:20 → N04B 20:53
PROVIDERS: ADMIT Hospitalist; ATTEND Hospitalist
PROC: 5A1D70Z Performance of Urinary Filtration, Intermittent, Less than 6 Hours Per Day (ICD-10-PCS; 2017-09-09)
PROC: 0DB78ZX Excision of Stomach, Pylorus, Via Natural or Artificial Opening Endoscopic, Diagnostic (ICD-10-PCS; 2017-09-10)
PROC: 0D738ZZ Dilation of Lower Esophagus, Via Natural or Artificial Opening Endoscopic (ICD-10-PCS; principal; 2017-09-10 12:06)
DX: I12.0 Hypertensive chronic kidney disease with stage 5 chronic kidney disease or end stage renal disease (principal); N18.6 End stage renal disease; N17.9 Acute kidney failure, unspecified; E11.22 Type 2 diabetes mellitus with diabetic chronic kidney disease; E11.51 Type 2 diabetes mellitus with diabetic peripheral angiopathy without gangrene; E21.3 Hyperparathyroidism, unspecified; I25.119 Atherosclerotic heart disease of native coronary artery with unspecified angina pectoris; M54.2 Cervicalgia; K22.2 Esophageal obstruction; K25.9 Gastric ulcer, unspecified as acute or chronic, without hemorrhage or perforation; K29.80 Duodenitis without bleeding; R13.10 Dysphagia, unspecified; E86.0 Dehydration; E78.5 Hyperlipidemia, unspecified; D63.8 Anemia in other chronic diseases classified elsewhere; R63.4 Abnormal weight loss; R11.2 Nausea with vomiting, unspecified; Z68.24 Body mass index [BMI] 24.0-24.9, adult; Z87.11 Personal history of peptic ulcer disease; K29.70 Gastritis, unspecified, without bleeding; Z95.5 Presence of coronary angioplasty implant and graft; Z95.1 Presence of aortocoronary bypass graft; Z79.82 Long term (current) use of aspirin; I25.2 Old myocardial infarction; Z87.891 Personal history of nicotine dependence; Z99.2 Dependence on renal dialysis; Z79.02 Long term (current) use of antithrombotics/antiplatelets
CPT/HCPCS: 71046; 72125; 74230; 80048; 80053; 80074; 81001; 83735; 84484; 85025; 88305; 88312; 90935; 93005; 96374; C1769; C9113; J7030; Q4081